=== PATIENT | male | born 1955 | race Caucasian/White ===

== ENCOUNTER 2017-07-26 13:07 | Emergency (ER) | payer MEDICARE ==
[~2017-07-26] VITALS: Wt 99.8 kg
[~2017-07-26 13:07] MED LIST: CIPROFLOXACIN500 MG PO; DILANTIN100 MG PO; FLOMAX0.4 MG PO; FUROSEMIDE40 MG PO; KLOR-CON20 MEQ PO; LASIX10 MG/ML PO; LASIX20 MG PO; LISINOPRIL5 MG PO; LOPRESSOR50 MG PO; METRONIDAZOLE250 MG PO; MIRALAX17 GM/PACK PO; Oscal,Oyster S500 MG PO; PROSCAR5 MG PO; SEPTRA DS 800 M1 TA1 PO; VICODIN 5/500 505 MG PO; XARE20MG PO; XARELTO10 MG PO
[2017-07-26] MEDS ORDERED: TRAMADOL HCL50 MG PO (13:24)
[2017-07-26] MEDS ORDERED: ACETAMINOPHEN325 M2 PO (13:25)
[2017-07-26] MEDS ORDERED: CIPROFLOXACIN500 M4 PO (13:25)
[2017-07-26] MEDS ORDERED: SEPTDS PO ×2 (13:26→15:30)
[2017-07-26 14:53] LABS: BILIRUBIN 2+ (NEGATIVE); BLOOD 3+ (NEGATIVE); COLOR RED (YELLOW); GLUCOSE TRACE (NEGATIVE); KETONE TRACE (NEGATIVE); NITRITE POSITIVE (NEGATIVE); PH 6.5 (5.0-9.0); SPECIFIC GRAVITY 1.015 (1.005-1.030)
[2017-07-26 14:54] LABS: CLARITY TURBID (CLEAR); LEUKO ESTERASE 2+ (NEGATIVE)
[2017-07-26 15:19] LABS: RBC TNTC rbc/hpf (0-2)
== END 2017-07-26 17:53 | disposition home or self-care (01) ==
LOC: ED 13:07
PROVIDERS: Student in an Organized Health Care Education/Training Program
DX: T83.018A Breakdown (mechanical) of other urinary catheter, initial encounter (principal); N39.0 Urinary tract infection, site not specified; Z98.890 Other specified postprocedural states; Y92.9 Unspecified place or not applicable

== ENCOUNTER 2018-04-16 17:29 | Emergency (ER) | payer MEDICARE, BC ==
[~2018-04-16] VITALS: Ht 187.9 cm; Wt 88.5 kg
[~2018-04-16 17:29] MED LIST changes: +ACETAMINOPHEN325 M2 PO; +CIPROFLOXACIN500 M4 PO; +SEPTDS PO; +TRAMADOL HCL50 MG PO
[2018-04-16] MEDS ORDERED: METOPROLOL SUCC50 M1 PO (18:16)
[2018-04-16] MEDS ORDERED: ASPIRIN81 M1 PO (18:17)
[2018-04-16] MEDS ORDERED: 'CLONIDINE0.1 MG PO (18:18)
[2018-04-16] MEDS ORDERED: IRON325 M1 PO (18:19)
[2018-04-16 19:19] LABS: BASO % 0.6 % (0.0-1.0); EOS # 0.3 10*3/uL (0.0-0.4); EOS % 4.4 % (1.0-4.0); HEMATOCRIT 39.6 % (42.0-52.0); HEMOGLOBIN 13.2 g/dl (14.0-18.0); LYMPH # 2.9 10*3/uL (1.3-4.4); LYMPH % 42.2 % (27.0-41.0); MEAN CELL VOLUME 88.8 fl (80.0-94.0); MEAN CORPUSCULAR HGB 29.6 pg (27.0-31.0); MEAN CORPUSCULAR HGB CONC 33.3 g/dl (33.0-37.0); MEAN PLATELET VOLUME 9.1 fl (9.6-12.3); MONO # 0.6 10*3/uL (0.1-1.0); MONO % 8.4 % (3.0-9.0); NEUT % 44.3 % (47.0-73.0); PLATELET COUNT AUTOMATED 255 10*3/uL (130-400); RED BLOOD COUNT 4.46 10*6/uL (4.50-5.90); RED CELL DISTRI WIDTH 16.4 % (0-14.5); WHITE BLOOD COUNT 6.9 10*3/uL (4.8-10.8)
[2018-04-16 19:34] LABS: ALBUMIN 3.6 gm/dl (3.1-4.5); ALKALINE PHOSPHATASE 103 U/L (45-117); BUN 13 mg/dl (7-24); CHLORIDE 95 mmol/L (98-107); CREATININE 0.59 mg/dL (0.70-1.30); POTASSIUM 3.8 mmol/L (3.5-5.1); SGOT/AST 8 IU/L (3-35); SGPT/ALT 14 U/L (12-78); SODIUM 130 mmol/L (136-145); TOTAL PROTEIN 7.8 gm/dL (6.4-8.2)
[2018-04-16 19:34] LABS: BILIRUBIN NEGATIVE (NEGATIVE); BLOOD 3+ (NEGATIVE); CLARITY CLOUDY (CLEAR); COLOR YELLOW (YELLOW); GLUCOSE NEGATIVE (NEGATIVE); KETONE NEGATIVE (NEGATIVE); LEUKO ESTERASE 3+ (NEGATIVE); NITRITE POSITIVE (NEGATIVE); PH 7.5 (5.0-9.0)
[2018-04-16 19:39] LABS: BACTERIA 4+; WBC TNTC wbc/hpf (0-5)
[2018-04-16 19:40] LABS: MUCOUS 1+
[2018-04-16] MEDS ORDERED: CIPRO500 MG PO (21:53)
== END 2018-04-16 22:03 | disposition home or self-care (01) ==
LOC: ED 17:29
PROVIDERS: Nurse Practitioner
DX: T83.098A Other mechanical complication of other urinary catheter, initial encounter (principal); N39.0 Urinary tract infection, site not specified; Z79.899 Other long term (current) drug therapy; Z79.82 Long term (current) use of aspirin

== ENCOUNTER 2018-07-09 13:51 | Inpatient (IN) | payer MEDICARE, BC ==
[~2018-07-09] VITALS: Ht 172.7 cm; Wt 95.9 kg
[2018-07-09] VITALS (8 sets, daily range): BP systolic 92–132; BP diastolic 61–84
--- NOTE | ~2018-07-09 | EKG ---
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
[~2018-07-09 13:51] MED LIST changes: +'CLONIDINE0.1 MG PO; +ASPIRIN81 M1 PO; +BACTRIM 400-801 EACH PO; +CIPRO500 MG PO; +IRON325 M1 PO; +METOPROLOL SUCC50 M1 PO
[2018-07-09 14:47] LABS: BASO % 0.6 % (0.0-1.0); EOS # 0.2 10*3/uL (0.0-0.4); EOS % 3.8 % (1.0-4.0); HEMATOCRIT 35.9 % (42.0-52.0); HEMOGLOBIN 11.7 g/dl (14.0-18.0); LYMPH # 0.8 10*3/uL (1.3-4.4); LYMPH % 17.3 % (27.0-41.0); MEAN CORPUSCULAR HGB 30.3 pg (27.0-31.0); MEAN CORPUSCULAR HGB CONC 32.6 g/dl (33.0-37.0); MONO # 0.3 10*3/uL (0.1-1.0); MONO % 6.9 % (3.0-9.0); NEUT # 3.4 10*3/uL (2.3-7.9); PLATELET COUNT AUTOMATED 207 10*3/uL (130-400); RED BLOOD COUNT 3.86 10*6/uL (4.50-5.90); RED CELL DISTRI WIDTH 15.4 % (0-14.5); WHITE BLOOD COUNT 4.8 10*3/uL (4.8-10.8)
[2018-07-09 15:01] LABS: INTERNATIONAL NORM RATIO 0.9 (2.0-3.5)
[2018-07-09 15:03] LABS: ALBUMIN 3.2 gm/dl (3.1-4.5); ALKALINE PHOSPHATASE 115 U/L (45-117); BUN 16 mg/dl (7-24); CHLORIDE 93 mmol/L (98-107); CREATININE 0.71 mg/dL (0.70-1.30); LIPASE 76 U/L (73-393); POTASSIUM 4.4 mmol/L (3.5-5.1); SGOT/AST 15 IU/L (3-35); SGPT/ALT 16 U/L (12-78); SODIUM 129 mmol/L (136-145); TOTAL PROTEIN 6.9 gm/dL (6.4-8.2)
[2018-07-09 15:08] LABS: TROPONIN I < 0.015 ng/ml (<0.045)
[2018-07-09 15:54] LABS: BILIRUBIN NEGATIVE (NEGATIVE); BLOOD 1+ (NEGATIVE); CLARITY CLOUDY (CLEAR); COLOR YELLOW (YELLOW); GLUCOSE NEGATIVE (NEGATIVE); KETONE NEGATIVE (NEGATIVE); LEUKO ESTERASE 3+ (NEGATIVE); NITRITE POSITIVE (NEGATIVE); SPECIFIC GRAVITY 1.025 (1.005-1.030)
[2018-07-09 16:13] LABS: BACTERIA 2+; WBC TNTC wbc/hpf (0-5)
[2018-07-09] MEDS ORDERED: CLONIDINE0.3 MG PO (18:05)
[2018-07-09] MEDS ORDERED: GOOD NEIGHBOR L10 MG PO (18:06)
[2018-07-10] VITALS: BP 135/83
[2018-07-10 07:32] LABS: BASO % 0.5 % (0.0-1.0); EOS # 0.2 10*3/uL (0.0-0.4); EOS % 3.1 % (1.0-4.0); HEMATOCRIT 35.1 % (42.0-52.0); HEMOGLOBIN 11.6 g/dl (14.0-18.0); LYMPH # 1.6 10*3/uL (1.3-4.4); LYMPH % 28.3 % (27.0-41.0); MEAN CELL VOLUME 91.9 fl (80.0-94.0); MEAN CORPUSCULAR HGB 30.4 pg (27.0-31.0); MEAN PLATELET VOLUME 9.1 fl (9.6-12.3); MONO # 0.4 10*3/uL (0.1-1.0); MONO % 7.6 % (3.0-9.0); NEUT # 3.3 10*3/uL (2.3-7.9); NEUT % 60.3 % (47.0-73.0); PLATELET COUNT AUTOMATED 206 10*3/uL (130-400); RED BLOOD COUNT 3.82 10*6/uL (4.50-5.90); RED CELL DISTRI WIDTH 15.3 % (0-14.5); WHITE BLOOD COUNT 5.5 10*3/uL (4.8-10.8)
[2018-07-10 07:38] LABS: ACT PARTIAL THROMBO TIME 28.7 SECONDS (20.8-31.5); INTERNATIONAL NORM RATIO 0.9 (2.0-3.5)
[2018-07-10 07:48] LABS: ALBUMIN 3.2 gm/dl (3.1-4.5); BUN 10 mg/dl (7-24); CHLORIDE 96 mmol/L (98-107); CHOLESTEROL 114 mg/dL (<200); PHOSPHOROUS 3.4 mg/dL (2.5-4.9); POTASSIUM 4.6 mmol/L (3.5-5.1); SGOT/AST 16 IU/L (3-35); SGPT/ALT 14 U/L (12-78); SODIUM 127 mmol/L (136-145); TOTAL PROTEIN 6.9 gm/dL (6.4-8.2); TRIGLYCERIDES 37 mg/dl (<150); VLDL CHOLESTEROL 7 mg/dL (6-40)
[2018-07-10 07:53] LABS: ALKALINE PHOSPHATASE 114 U/L (45-117); FREE T4 1.25 ng/dl (0.76-1.46); HDL CHOLESTEROL 60 mg/dl (40-60); LDL CHOLESTEROL 47 mg/dL (9-159)
[2018-07-10 08:00] VITALS: BP 120/80
[2018-07-10 08:44] LABS: VITAMIN D, 25-HYDROXY 16.1 ng/mL (30-100)
[2018-07-10 12:00] VITALS: BP 117/65
[2018-07-10 16:00] VITALS: BP 134/80
[2018-07-10 20:00] VITALS: BP 156/85
[2018-07-11] VITALS: BP 142/82
[2018-07-11 06:00] LABS: BASO % 0.4 % (0.0-1.0); EOS # 0.2 10*3/uL (0.0-0.4); EOS % 3.9 % (1.0-4.0); HEMATOCRIT 35.1 % (42.0-52.0); HEMOGLOBIN 11.3 g/dl (14.0-18.0); LYMPH # 1.4 10*3/uL (1.3-4.4); LYMPH % 29.8 % (27.0-41.0); MEAN CELL VOLUME 92.4 fl (80.0-94.0); MEAN CORPUSCULAR HGB 29.7 pg (27.0-31.0); MEAN CORPUSCULAR HGB CONC 32.2 g/dl (33.0-37.0); MEAN PLATELET VOLUME 9.2 fl (9.6-12.3); MONO # 0.6 10*3/uL (0.1-1.0); MONO % 11.4 % (3.0-9.0); NEUT # 2.6 10*3/uL (2.3-7.9); NEUT % 54.3 % (47.0-73.0); PLATELET COUNT AUTOMATED 209 10*3/uL (130-400); RED CELL DISTRI WIDTH 15.5 % (0-14.5); WHITE BLOOD COUNT 4.8 10*3/uL (4.8-10.8)
[2018-07-11 06:17] LABS: BUN 15 mg/dl (7-24); CHLORIDE 93 mmol/L (98-107); CREATININE 0.59 mg/dL (0.70-1.30); POTASSIUM 4.2 mmol/L (3.5-5.1); SODIUM 127 mmol/L (136-145)
[2018-07-11 08:00] VITALS: BP 144/74
[2018-07-11 12:00] VITALS: BP 149/91
[2018-07-11] MEDS ORDERED: CEFTRIAXONE1 GM IJ (15:26)
[2018-07-11 16:00] VITALS: BP 144/87
== END 2018-07-11 18:35 | disposition home health service (06) | DRG 603 ==
LOC: ED 13:51 → 4E 16:01 → EDHOLD 16:01 → 4E 16:19
PROVIDERS: Internal Medicine; Physician Assistant; Student in an Organized Health Care Education/Training Program
PROC: 05HY33Z Insertion of Infusion Device into Upper Vein, Percutaneous Approach (ICD-10-PCS; principal; 2018-07-11)
DX: L03.116 Cellulitis of left lower limb (principal); E87.1 Hypo-osmolality and hyponatremia; E44.1 Mild protein-calorie malnutrition; N30.01 Acute cystitis with hematuria; R55 Syncope and collapse; L03.115 Cellulitis of right lower limb; I87.2 Venous insufficiency (chronic) (peripheral); R00.1 Bradycardia, unspecified; D64.9 Anemia, unspecified; D72.810 Lymphocytopenia; B35.1 Tinea unguium; E55.9 Vitamin D deficiency, unspecified; I95.9 Hypotension, unspecified; E87.8 Other disorders of electrolyte and fluid balance, not elsewhere classified; I10 Essential (primary) hypertension; R26.2 Difficulty in walking, not elsewhere classified; Z93.59 Other cystostomy status; Z68.32 Body mass index [BMI] 32.0-32.9, adult; Z79.899 Other long term (current) drug therapy

== ENCOUNTER 2018-11-22 09:44 | Inpatient (IN) | payer MEDICARE, BC ==
[~2018-11-22] VITALS: Ht 182.8 cm; Wt 92.6 kg
--- NOTE | ~2018-11-22 | CON ---
[place], [place] REPORT OF CONSULTATION NAME: BROOKS CHADWICK UNIT #: [id number] ROOM: 419 DOCTOR: PARDEEP HERNANDEZ MD BIRTHDATE: [birth year] DOS: 11/23/2018 REASON FOR CONSULTATION: UTI. CHIEF COMPLAINT: Episode of syncope. HISTORY OF PRESENT ILLNESS: This is a 63-year-old male who is currently admitted after an episode of syncope at care home while he was sitting in his wheelchair. The patient is not the best historian and history is limited. Some of the history obtained is from medical records and after talking to his over the phone. According to the medical records, he was recently at [facility] and he underwent abdominal hernia surgery on 11/13/2018 and he has neurogenic bladder, for which he has chronic suprapubic catheter that is exchanged every month. Last was exchanged around 10/31/2018 at [facility] and this time, the patient denies having any fever, chills, no nausea or vomiting. His abdominal pain is partly related to his recent surgery, but no increased abdominal pain or concerns. On admission, his vitals have been stable. His labs reveal no leukocytosis. Renal function is at his baseline normal. His UA was obtained from the suprapubic catheter that shows pyuria too numerous to count and urine cultures are showing heavy gram-negative bacteria and GPC. In the past, he had a growth of Proteus mirabilis from 10/31/2018, also in 09/2018, previously had Morganella morganii. PAST MEDICAL HISTORY: Significant for abdominal hernia surgery as mentioned above, hypertension, suprapubic catheter. PAST SURGICAL HISTORY: Colostomy, suprapubic catheter. SOCIAL HISTORY: Nonsmoker, nonalcoholic, no illicit drug use. ALLERGIES: No known drug allergies. HOME MEDICATIONS: Reviewed. REVIEW OF SYSTEMS: A 12-point review of systems has been done. Pertinent negatives and positives included in HPI, rest are noncontributory. PHYSICAL EXAMINATION: CURRENT VITAL SIGNS: Include temperature 98.1, pulse rate 60, respiratory rate 18, oxygen saturation 100% on room air. HEENT: Atraumatic, normocephalic. PERRLA. EOMI. RESPIRATORY: Air entry is bilaterally equal. No wheezes or crackles. CARDIOVASCULAR: S1, S2 normal. No murmurs, rubs or gallops. ABDOMEN: Soft. Midline incision intact. Postop appropriate tenderness. Suprapubic catheter site. No purulence or drainage, minimal redness expected. No leakage. NEUROLOGIC: Grossly intact. LABS AND IMAGING: Reviewed and mentioned in HPI. [place], [place] REPORT OF CONSULTATION NAME: BROOKS CHADWICK UNIT #: [id number] ROOM: 419 DOCTOR: PARDEEP HERNANDEZ MD BIRTHDATE: [birth year] ASSESSMENT: 1. Transient encephalopathy, resolved, likely dehydration/metabolic issues. 2. Chronic Izaguirre/neurogenic bladder/questionable urinary tract infection versus blockage. PLAN: At this time, I did review his past records and he is due for his suprapubic catheter exchanged. I would recommend to place a new Izaguirre catheter, get the urinalysis from the new catheter and if it shows consistent pyuria, we will treat him for 7-10 days. Currently, the patient is on meropenem 1 g q. 8 hourly. Would deescalate based on the sensitivity and culture finalization. Fluid hydration. Thank you for your consult. Please call for any questions. Pardeep Hernandez MD CM:CONSTR:REPORT OF CONSULTATION 1025 11/23/18 1253 interface
--- NOTE | ~2018-11-22 | EKG ---
[place], [place] ELECTROCARDIOGRAM REPORT NAME: BROOKS CHADWICK UNIT #: [id number] ROOM: 419 DOCTOR: JEFFERY DRAFT REPORT BIRTHDATE: [birth year] [facility] Test Date: 2018-11-22 Test Time: 10:03:33 Pat Name: BROOKS CHADWICK Department: Room: 419 Gender: M Yard Driver: Mary Sifuentes : 1955 Requested By: ARRON COLMENARES Order Number: [id number] Reading MD: Eva Regalado MD Measurements Intervals [place] Rate: 54 P: 29 VT: 241 QRS: 73 QRSD: 107 T: 63 QT: 448 QTc: 425 Interpretive Statements Sinus rhythm Prolonged VT interval Probable lateral infarct, old Compared to ECG 07/09/2018 14:31:20 Myocardial infarct finding now present Electronically Signed On 11-24-2018 13:11:53 PDT by Eva Regalado MD CM:EKGRPT:ELECTROCARDIOGRAM REPORT 1003 1311 ARRON GIL DRAFT REPORT ARRON COLMENARES MD
[~2018-11-22 09:44] MED LIST changes: +CEFTRIAXONE1 GM IJ; +CEFUROXIME250 MG PO; +CLONIDINE HCL0.1 MG PO; +GOOD NEIGHBOR L10 MG PO; -METOPROLOL SUCC50 M1 PO; +METOPROLOL TART50 M1 PO
[2018-11-22 09:46] VITALS: BP 90/56
[2018-11-22 10:54] LABS: BILIRUBIN NEGATIVE (NEGATIVE); BLOOD 1+ (NEGATIVE); CLARITY CLOUDY (CLEAR); COLOR YELLOW (YELLOW); GLUCOSE NEGATIVE (NEGATIVE); KETONE NEGATIVE (NEGATIVE); LEUKO ESTERASE 2+ (NEGATIVE); NITRITE POSITIVE (NEGATIVE); PH 6.5 (5.0-9.0); UROBILINOGEN 0.2 E.U./dl (0.2-1.0)
[2018-11-22 10:55] LABS: BASO % 0.3 % (0.0-1.0); EOS # 0.3 10*3/uL (0.0-0.4); EOS % 4.1 % (1.0-4.0); HEMATOCRIT 35.5 % (42.0-52.0); HEMOGLOBIN 11.5 g/dl (14.0-18.0); LYMPH # 1.4 10*3/uL (1.3-4.4); LYMPH % 20.3 % (27.0-41.0); MEAN CELL VOLUME 93.4 fl (80.0-94.0); MEAN CORPUSCULAR HGB 30.3 pg (27.0-31.0); MEAN CORPUSCULAR HGB CONC 32.4 g/dl (33.0-37.0); MEAN PLATELET VOLUME 8.8 fl (9.6-12.3); MONO # 0.6 10*3/uL (0.1-1.0); NEUT # 4.7 10*3/uL (2.3-7.9); NEUT % 66.9 % (47.0-73.0); PLATELET COUNT AUTOMATED 250 10*3/uL (130-400); RED CELL DISTRI WIDTH 15.3 % (0-14.5)
[2018-11-22 11:09] LABS: ACT PARTIAL THROMBO TIME 27.8 SECONDS (20.8-31.5)
[2018-11-22 11:11] LABS: BACTERIA 4+; WBC TNTC wbc/hpf (0-5)
[2018-11-22 11:12] LABS: ALBUMIN 2.6 gm/dl (3.1-4.5); ALKALINE PHOSPHATASE 93 U/L (45-117); BUN 20 mg/dl (7-24); CHLORIDE 95 mmol/L (98-107); CREATININE 0.59 mg/dL (0.70-1.30); POTASSIUM 3.9 mmol/L (3.5-5.1); SGOT/AST 20 IU/L (3-35); SGPT/ALT 21 U/L (12-78); SODIUM 131 mmol/L (136-145); TOTAL PROTEIN 6.7 gm/dL (6.4-8.2)
[2018-11-22 11:15] LABS: TROPONIN I < 0.015 ng/ml (<0.045)
[2018-11-22 11:19] VITALS: BP 103/66
--- NOTE | 2018-11-22 11:47 | NUR ---
[facility] WILL SOON BE SENDING A BOOKING POLICE OFFICER TO [facility]ESS [facility]. NO CHANGE IN PT CONDITION OR COMPLAINT. HE CONTINUES TO SLEEP INTERMITTENTLY. MEAL TRAY ORDERED FOR LUNCH.
[2018-11-22 11:59] VITALS: BP 102/66
--- NOTE | 2018-11-22 12:37 | NUR ---
A 63, admitted to 4E, under the services of SONG Jason DO with a diagnosis of sycope. Chief complaint is pt states he fell over in wheelchair today at [facility]. Pt and mother in law present states that pt has done this for years, states he had seen a neurogist before and they told him it was some type of seizure disorder. States he just goes limp and is unresponsive when it happens. Pt denies falling out of chair today with this episode. Patient arrived via stretcher from ER. Monitor applied. Initial assessment completed. See assessment for past medical history, medications and allergies. Patient and/or family oriented to unit. [facility] visitation policy reviewed. JERICA HERNANDEZ
[2018-11-22 12:38] VITALS: BP 125/87
[2018-11-22] MEDS ORDERED: TYLENOL325 M2 PO (13:10)
[2018-11-22] MEDS ORDERED: DULCOLAX10 M1 R (13:14)
[2018-11-22] MEDS ORDERED: COUGH DM E30 MG/5 ML PO (13:14)
[2018-11-22] MEDS ORDERED: FEROSUL325 MG PO (13:15)
[2018-11-22] MEDS ORDERED: FLEET ENEMA 13133 ML R (13:16)
[2018-11-22] MEDS ORDERED: MILK OF MA400 MG/52 PO (13:17)
[2018-11-22] MEDS ORDERED: GLUCAGON EMERGEN1 M1 IJ (13:19)
[2018-11-22] MEDS ORDERED: GLUTOSE 1537.5 GM PO (13:21)
--- NOTE | 2018-11-22 13:40 | NUR ---
Orthostatics performed laying and sitting. 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
--- NOTE | 2018-11-22 13:40 | NUR ---
Spoke with Dr. Russ regarding wounds to buttocks bl and midline surgical incision. Notified that I had not received stages yet from ER staff.
--- NOTE | 2018-11-22 13:58 | NUR ---
Spoke with Thien Lara in ER regarding staging of wounds. States that the did not give him that information it should be documented somewhere. He asked Er physican and states that left buttocks is stage 3, rt buttocks DTI and midline is surgical.
--- NOTE | 2018-11-22 14:45 | NUR ---
Dr. Felder up to the floor. Notified of wounds and stages of wounds. States he will discuss orders with Crystal. I notified him that Crystal is currently out for the day.
[2018-11-22 16:00] VITALS: BP 142/77
--- NOTE | 2018-11-22 17:18 | NUR ---
ANSWERING SERVICE WAS NOTIFIED OF DR. NEVAEH LINDER. RESPONSE OF NOTIFICATION WAS INFORMATION THAT WAS REQUESTED WAS PROVIDED, THEY STATED THEY WOULD HAVE DR CALL US. JERICA HERNANDEZ
[2018-11-22 20:00] VITALS: BP 128/70
[2018-11-23] VITALS: BP 131/73
--- NOTE | 2018-11-23 04:05 | NUR ---
CHART CHECK COMPLETED.
[2018-11-23 06:28] LABS: BASO % 0.4 % (0.0-1.0); EOS # 0.3 10*3/uL (0.0-0.4); EOS % 6.1 % (1.0-4.0); HEMATOCRIT 36.5 % (42.0-52.0); HEMOGLOBIN 11.6 g/dl (14.0-18.0); LYMPH # 1.8 10*3/uL (1.3-4.4); LYMPH % 33.8 % (27.0-41.0); MEAN CELL VOLUME 94.8 fl (80.0-94.0); MEAN CORPUSCULAR HGB 30.1 pg (27.0-31.0); MEAN CORPUSCULAR HGB CONC 31.8 g/dl (33.0-37.0); MONO # 0.4 10*3/uL (0.1-1.0); MONO % 8.2 % (3.0-9.0); NEUT # 2.8 10*3/uL (2.3-7.9); NEUT % 51.3 % (47.0-73.0); PLATELET COUNT AUTOMATED 258 10*3/uL (130-400); RED BLOOD COUNT 3.85 10*6/uL (4.50-5.90); RED CELL DISTRI WIDTH 15.3 % (0-14.5); WHITE BLOOD COUNT 5.4 10*3/uL (4.8-10.8)
[2018-11-23 06:39] LABS: BUN 17 mg/dl (7-24); CHLORIDE 96 mmol/L (98-107); CREATININE 0.42 mg/dL (0.70-1.30); PHOSPHOROUS 3.1 mg/dL (2.5-4.9); POTASSIUM 4.3 mmol/L (3.5-5.1); SODIUM 132 mmol/L (136-145)
--- NOTE | 2018-11-23 10:30 | NUR ---
PHYSICAL THERAPY PT EVAL COMPLETED TODAY ON LEVEL 4: FULL EVALUATION TO FOLLOW; RECOMMEND PT WHILE HERE TO ADDRESS DECREASED STRENGTH, ENDURANCE AND BALANCE. PT EVAL IS MODERATE COMPLEXITY BASED ON CHART REVIEW, TEST RESULTS AND EVALUATION: [id number] D/C RECOMMENDATIONS ARE TO RETURN TO [facility] FOR CONTINUED SNF ON D.C. THANK YOU FOR REFERRAL JOSEPH CHO PT
--- NOTE | 2018-11-23 10:45 | NUR ---
Report given to Bety Smith supervisor doping while she was rounding. Notified that pt needs suprapubic cath changed then urine sent from new cath per ID. Bety states that nursing does not do that here and to notify the physican.
--- NOTE | 2018-11-23 11:00 | NUR ---
Spoke with Dr. Pal regarding need for suprapubic cath to be changed as ordered by Dr. Hernandez. Notified that nursing does not do that here.
[2018-11-23 12:00] VITALS: BP 142/86
--- NOTE | 2018-11-23 13:10 | NUR ---
Bety Smith nursing supervisor research shop states that we do not have any suprapubic caths available in hospital. States she spoke with Sanjiv and Corinne Núñez from surgery dept and attempted to locate them but the bin where she was directed was empty. States they recommended the malecot model instead. I notified Dr. Thakur of this and he states that if pt needs it exchanged he will have to go somewhere else since we do not have the appropriate supplies for pt.
--- NOTE | 2018-11-23 13:26 | NUR ---
I spoke with Dr. Felder and notified him that we do not have any suprapubic caths available and Dr. Thakur states if pt needs exchanged he said pt will need sent elsewhere. I notified Dr. Felder that per family pt had suprapubic cath placed 3 years ago and it was changed October 31 per family. Notified that operative report from [facility] is on chart. Then I spoke with Dr. Vivar and she states to call supervisor die casting regarding obtaining suprapubic cath and let her know when we can except this. I relayed this message to Bety Smith nursing supervisor die casting.
--- NOTE | 2018-11-23 15:00 | NUR ---
Bety spoke with Dr. Thakur regarding cath exchange. Bety had spoke with nursing staff at [facility] who stated that they use harris caths in place of suprapubics for their exchanges. Dr. Thakur states he will change then with steven.
[2018-11-23 16:00] VITALS: BP 132/86
--- NOTE | 2018-11-23 17:05 | NUR ---
IN TO SEE PATIENT REGARDING CONSULT. PREVIOUS SUPRA-PUBIC CATHETER REMOVED. NEW ASTUDILLO CATHETER INSERTED AT THIS TIME. PT TOLERATED WELL. DRY DRESSING APPLIED. WILL OBTAIN URINE SPECIMEN PER ORDER.
[2018-11-23 20:00] VITALS: BP 164/90
[2018-11-23 20:26] LABS: BILIRUBIN NEGATIVE (NEGATIVE); BLOOD 2+ (NEGATIVE); CLARITY CLEAR (CLEAR); COLOR YELLOW (YELLOW); GLUCOSE NEGATIVE (NEGATIVE); KETONE NEGATIVE (NEGATIVE); LEUKO ESTERASE 1+ (NEGATIVE); NITRITE NEGATIVE (NEGATIVE)
[2018-11-23 20:36] LABS: WBC TNTC wbc/hpf (0-5)
[2018-11-23 20:37] LABS: BACTERIA 2+; MUCOUS 1+
[2018-11-23 22:02] VITALS: BP 162/88
--- NOTE | 2018-11-23 22:06 | NUR ---
CALLED DR CANO TO LET HIM KNOW THE PATIENT BP WAS STILL ELEVATED. NEW ORDERS BEING PLACED.
[2018-11-23 23:22] VITALS: BP 156/82
[2018-11-24] VITALS: BP 156/82
--- NOTE | 2018-11-24 06:26 | NUR ---
MICRO RESULTS OF VRE OF THE URINE CALLED TO DR CANO AND MESSAGE LEFT WITH INFECTIOUS DISEASE ANSWERING SERVICE. NO NEW ORDERS RECEIVED AT THIS TIME.
[2018-11-24 08:00] VITALS: BP 120/70
[2018-11-24 08:23] LABS: BASO % 0.4 % (0.0-1.0); EOS # 0.3 10*3/uL (0.0-0.4); EOS % 5.9 % (1.0-4.0); HEMATOCRIT 36.3 % (42.0-52.0); HEMOGLOBIN 11.9 g/dl (14.0-18.0); LYMPH # 2.1 10*3/uL (1.3-4.4); LYMPH % 38.3 % (27.0-41.0); MEAN CELL VOLUME 93.1 fl (80.0-94.0); MEAN CORPUSCULAR HGB 30.5 pg (27.0-31.0); MEAN CORPUSCULAR HGB CONC 32.8 g/dl (33.0-37.0); MEAN PLATELET VOLUME 8.6 fl (9.6-12.3); MONO # 0.5 10*3/uL (0.1-1.0); MONO % 9.2 % (3.0-9.0); NEUT # 2.5 10*3/uL (2.3-7.9); PLATELET COUNT AUTOMATED 280 10*3/uL (130-400); RED CELL DISTRI WIDTH 15.3 % (0-14.5); WHITE BLOOD COUNT 5.4 10*3/uL (4.8-10.8)
[2018-11-24 08:46] LABS: ALBUMIN 2.8 gm/dl (3.1-4.5); ALKALINE PHOSPHATASE 101 U/L (45-117); BUN 10 mg/dl (7-24); CHLORIDE 92 mmol/L (98-107); CREATININE 0.36 mg/dL (0.70-1.30); POTASSIUM 4.3 mmol/L (3.5-5.1); SGOT/AST 19 IU/L (3-35); SGPT/ALT 18 U/L (12-78); SODIUM 127 mmol/L (136-145); TOTAL PROTEIN 7.1 gm/dL (6.4-8.2)
[2018-11-24 12:00] VITALS: BP 103/72
[2018-11-24 16:00] VITALS: BP 99/61
[2018-11-24 18:00] VITALS: BP 99/61
[2018-11-24 20:00] VITALS: BP 138/74
[2018-11-25] VITALS: BP 115/74
[2018-11-25 06:10] LABS: BASO % 0.3 % (0.0-1.0); EOS # 0.5 10*3/uL (0.0-0.4); EOS % 8.2 % (1.0-4.0); HEMATOCRIT 39.3 % (42.0-52.0); HEMOGLOBIN 12.8 g/dl (14.0-18.0); LYMPH # 2.1 10*3/uL (1.3-4.4); MEAN CELL VOLUME 92.9 fl (80.0-94.0); MEAN CORPUSCULAR HGB 30.3 pg (27.0-31.0); MEAN CORPUSCULAR HGB CONC 32.6 g/dl (33.0-37.0); MEAN PLATELET VOLUME 8.9 fl (9.6-12.3); MONO # 0.6 10*3/uL (0.1-1.0); MONO % 9.3 % (3.0-9.0); NEUT % 47.9 % (47.0-73.0); PLATELET COUNT AUTOMATED 307 10*3/uL (130-400); RED BLOOD COUNT 4.23 10*6/uL (4.50-5.90); RED CELL DISTRI WIDTH 15.2 % (0-14.5); WHITE BLOOD COUNT 6.2 10*3/uL (4.8-10.8)
[2018-11-25 06:29] LABS: BUN 11 mg/dl (7-24); CHLORIDE 89 mmol/L (98-107); CREATININE 0.45 mg/dL (0.70-1.30); PHOSPHOROUS 2.7 mg/dL (2.5-4.9); POTASSIUM 3.9 mmol/L (3.5-5.1); SODIUM 125 mmol/L (136-145)
--- NOTE | 2018-11-25 07:29 | NUR ---
NETTABROOKS Noonan [id number] Please refer to the physician's history and physical for past medical history, comorbid conditions, and allergies. Diagnosis: SYNCOPE AND COLLAPSE HYPOTENSION Ralph Score: 15,AT RISK WOUND DESCRIPTIONS: Wound Number: 1 Location of the wound: midline abdomen Type of wound: surgical Thickness: Partial Size: 16.5cm x 0.4cm x <0.1cm Tunneling: none Undermining: none Sinus Tract: none Presence of Exudate: none Amount: None Color: Brown Odor: None Periwound Skin Appearance: Normal Wound edges: approximated with 24 madie Pain (associated with wound): none at time of assessment How does patient state this happened? pt's nurse stated he had surgery on november 13 [place] Wound Number: 2 Right buttocks is red and blanchable at time of assessment. No open areas noted at time of assessment. No drainage noted at time of assessment. Wound Number: 3 Location of the wound: left buttocks Type of wound: stage 2 Thickness: Partial Size: 6.5cm x 7.5cm x 0.1cm Tunneling: none Undermining: none Sinus Tract: none Presence of Exudate: Serous Amount: Light Color: Red Odor: None Periwound Skin Appearance: Normal Wound edges: approximated Pain (associated with wound): none at time of assessment How does patient state this happened? pt unable to state how this happened Surface the patient is resting on: Isoflex SKIN PREVENTION RECOMMENDATION: 1. Pressure redistribution support surface as appropriate 2. Elevate heels 3. Remove boots/TEDS every shift and reapply 4. Head of bed 30 degrees as tolerated 5. Assess nutrition and hydration 6. Manage moisture 7. Avoid the use of containment devices while in bed 8. Use absorptive products on surfaces limit layers of linens on bed 9. Turn and reposition every 1-2 hours in bed and every 1 hour in chair as tolerated 10. Weight shifts every 15 minutes while up in chair 11. Offloading with pillows or device to keep heels elevated off bed 12. Monitor skin at least every shift 13. Inspect under medical devices twice a day WOUND TREATMENT RECOMMENDATIONS: Cleanse midline abdominal wound with nss and apply dsd daily and prn for soiling. Cleanse left buttocks with soap and water and apply calazime every shift and prn for soiling. Wheelchair cushion when oob. Heel raiser pro boots while in bed to bilateral heels. D/C stage 3 and 4 guidlines. D/C DTI guidelines.
[2018-11-25 08:00] VITALS: BP 122/78
--- NOTE | 2018-11-25 08:24 | NUR ---
CALLED DR. ANDREW IN REGARDS TO SODIUM AND CHLORIDE LEVELS (SEE LABS). NO NEW ORDERS AT THIS TIME.
--- NOTE | 2018-11-25 09:24 | NUR ---
Patient comes in from [facility] short term, he is ok to return when medically stable.
--- NOTE | 2018-11-25 10:51 | NUR ---
Dr. Lima notified of wound care recommendations.
--- NOTE | 2018-11-25 11:46 | NUR ---
PHYSICAL THERAPY Patient seen this am 1:1 for therapy visit and was sitting up in bedside chair upon therapist arrival. Patient presented with continuous O2-1L via NC and with severe L side lean. Patient repositioned in chair with increased trunk rigidity and was otherwise very pleasant. Patient performed seated B LE therex, all planes, x 20 reps each, requiring v/c to complete all ex in reaching full AROM. Patient transfers sit to stand, MAX A and completed SPT to bed, DISTRIBUTION DISPATCHER/MAX, demonstrating increased difficulty with B foot advance due to Poor weight shifting and Poor upright balance. Patient returned to supine in bed and remained with call light, tray table and bed alarm for safety. Will continue per POC as tolerated, total treatment time 15 minutes. Mark Casillas, HOME ORGANIZER
[2018-11-25 12:00] VITALS: BP 131/85
[2018-11-25 16:00] VITALS: BP 113/84
[2018-11-25 16:42] LABS: BILIRUBIN NEGATIVE (NEGATIVE); BLOOD TRACE-INTACT (NEGATIVE); CLARITY CLEAR (CLEAR); COLOR YELLOW (YELLOW); GLUCOSE NEGATIVE (NEGATIVE); KETONE NEGATIVE (NEGATIVE); LEUKO ESTERASE 1+ (NEGATIVE); NITRITE NEGATIVE (NEGATIVE); SPECIFIC GRAVITY 1.015 (1.005-1.030); UROBILINOGEN 0.2 E.U./dl (0.2-1.0)
[2018-11-25 16:51] LABS: URINE CREATININE RANDOM 64.4 mg/dL
[2018-11-25 17:02] LABS: BACTERIA 2+; MUCOUS 1+; WBC 31-40 wbc/hpf (0-5)
--- NOTE | 2018-11-25 19:43 | NUR ---
PATIENT RESTING COMFORTABLY. VERY ANXIOUS WHEN TRYING TO ASSESS SURGICAL SITE AND SUPRAPUBIC CATHETER SITE. BUT DID ALLOW. REMAINS PLEASANTLY CONFUSED. SENT URINE LABS (SEE ORDERS). APPLIED HEEL PROTECTORS AND SEAT CUSHION.
[2018-11-25 20:00] VITALS: BP 148/84
--- NOTE | 2018-11-25 20:00 | NUR ---
RESTING IN BED WITH HOB SLIGHTLY ELEVATED. PT. VOICES NO C/O AT THIS TIME. CALL LIGHT WITHIN REACH.
--- NOTE | 2018-11-25 22:30 | NUR ---
BEING BATHED BY PA. TOLERATING WELL. VOICES NO C/O AT THIS TIME. CALL LIGHT WITHIN REACH.
[2018-11-26] VITALS: BP 155/87
--- NOTE | 2018-11-26 06:00 | NUR ---
AROUSES EASILY WHEN IN ROOM. VOICES NO C/O AT THIS TIME. CALL LIGHT WITHIN REACH.
[2018-11-26 08:00] VITALS: BP 116/50
--- NOTE | 2018-11-26 08:19 | NUR ---
PHYSICAL THERAPY Nursing in with patient at this time. Will check later at later time. LATA RAZA ELECTRIC TRUCK OPERATOR
--- NOTE | 2018-11-26 09:00 | NUR ---
case management visits with patient, discussed with him a discharge plan and he stated he would be returning to [facility] to finish his skilled stay, case management will notify [facility] when patient is medically stable for discharge
[2018-11-26 09:01] LABS: BASO % 0.5 % (0.0-1.0); EOS # 0.4 10*3/uL (0.0-0.4); EOS % 6.9 % (1.0-4.0); HEMATOCRIT 35.1 % (42.0-52.0); HEMOGLOBIN 11.6 g/dl (14.0-18.0); LYMPH # 1.8 10*3/uL (1.3-4.4); LYMPH % 33.3 % (27.0-41.0); MEAN CELL VOLUME 91.4 fl (80.0-94.0); MEAN CORPUSCULAR HGB 30.2 pg (27.0-31.0); MEAN PLATELET VOLUME 8.8 fl (9.6-12.3); MONO # 0.5 10*3/uL (0.1-1.0); MONO % 8.6 % (3.0-9.0); NEUT # 2.8 10*3/uL (2.3-7.9); NEUT % 50.5 % (47.0-73.0); PLATELET COUNT AUTOMATED 303 10*3/uL (130-400); RED BLOOD COUNT 3.84 10*6/uL (4.50-5.90); RED CELL DISTRI WIDTH 15.3 % (0-14.5); WHITE BLOOD COUNT 5.5 10*3/uL (4.8-10.8)
[2018-11-26 09:12] LABS: ALBUMIN 2.9 gm/dl (3.1-4.5); ALKALINE PHOSPHATASE 103 U/L (45-117); BUN 9 mg/dl (7-24); CHLORIDE 94 mmol/L (98-107); CREATININE 0.45 mg/dL (0.70-1.30); POTASSIUM 3.8 mmol/L (3.5-5.1); SGOT/AST 12 IU/L (3-35); SGPT/ALT 17 U/L (12-78); SODIUM 130 mmol/L (136-145); TOTAL PROTEIN 6.8 gm/dL (6.4-8.2)
[2018-11-26 12:00] VITALS: BP 128/75
[2018-11-26] MEDS ORDERED: ZOSYN 3.373.375 GM/5 IV (13:38)
--- NOTE | 2018-11-26 14:11 | NUR ---
case management received a message that patient would be transferred back to [facility], contacted Clarissa from [facility] and notified her that patient would be coming back around 3pm today, also faxed patient's information to her. contacted [facility] to transport at 3pm, patient's information faxed to [facility]. informated patient's nurse time of transfer. visited with patient and informed him he would be returning to [facility] at 3pm, also contacted his , Kat and notified her
--- NOTE | 2018-11-26 14:18 | NUR ---
PATIENT BEING DISCHARGED.
--- NOTE | 2018-11-26 15:17 | NUR ---
NURSE TO NURSE REPORT GIVEN TO HUY AT [facility].
--- NOTE | 2018-11-26 15:36 | NUR ---
PHYSICAL THERAPY CO-SIGN I approve of the Phyical Therapy notes written above. PEDRO EID PT
--- NOTE | 2018-11-26 16:00 | NUR ---
Discharge instructions reviewed with patient/family. Patient receptive and verbalizes understanding. Follow-up care arranged. Written instructions given to patient/family. ZOHREH JOHNSON
== END 2018-11-26 16:00 | disposition other institution (70) | DRG 70 ==
LOC: ED 09:44 → EDHOLD 11:51 → 4E 11:51
PROVIDERS: Emergency Medicine; Internal Medicine; Internal Medicine Nephrology; Student in an Organized Health Care Education/Training Program; ADMIT Emergency Medicine
PROC: 0T2BX0Z Change Drainage Device in Bladder, External Approach (ICD-10-PCS; principal; 2018-11-24)
PROC: 05HY33Z Insertion of Infusion Device into Upper Vein, Percutaneous Approach (ICD-10-PCS; 2018-11-25)
DX: G93.41 Metabolic encephalopathy (principal); L89.323 Pressure ulcer of left buttock, stage 3; E43 Unspecified severe protein-calorie malnutrition; N39.0 Urinary tract infection, site not specified; E87.1 Hypo-osmolality and hyponatremia; G91.9 Hydrocephalus, unspecified; I95.9 Hypotension, unspecified; R55 Syncope and collapse; L89.310 Pressure ulcer of right buttock, unstageable; B96.5 Pseudomonas (aeruginosa) (mallei) (pseudomallei) as the cause of diseases classified elsewhere; N31.9 Neuromuscular dysfunction of bladder, unspecified; D64.9 Anemia, unspecified; R00.1 Bradycardia, unspecified; R26.2 Difficulty in walking, not elsewhere classified; I10 Essential (primary) hypertension; E55.9 Vitamin D deficiency, unspecified; E61.1 Iron deficiency; Z87.440 Personal history of urinary (tract) infections; Z80.1 Family history of malignant neoplasm of trachea, bronchus and lung; Z79.899 Other long term (current) drug therapy

== ENCOUNTER 2019-04-05 11:11 | Inpatient (IN) | payer MEDICARE, BC ==
[~2019-04-05] VITALS: Ht 182.8 cm; Wt 81.9 kg
[~2019-04-05 11:11] MED LIST changes: +COUGH DM E30 MG/5 ML PO; +DULCOLAX10 M1 R; +FEROSUL325 MG PO; +FLEET ENEMA 13133 ML R; +GLUCAGON EMERGEN1 M1 IJ; +GLUTOSE 1537.5 GM PO; +MILK OF MA400 MG/52 PO; +TYLENOL325 M2 PO; +ZOSYN 3.373.375 GM/5 IV
[2019-04-05 11:18] VITALS: BP 154/97
[2019-04-05 11:49] LABS: BILIRUBIN NEGATIVE (NEGATIVE); BLOOD 1+ (NEGATIVE); CLARITY CLOUDY (CLEAR); COLOR YELLOW (YELLOW); GLUCOSE NEGATIVE (NEGATIVE); KETONE NEGATIVE (NEGATIVE); LEUKO ESTERASE 3+ (NEGATIVE); NITRITE NEGATIVE (NEGATIVE); PH 8.5 (5.0-9.0)
[2019-04-05 11:49] LABS: BASO # 0.1 10*3/uL (0.0-0.1); BASO % 0.7 % (0.0-1.0); EOS # 0.7 10*3/uL (0.0-0.4); EOS % 8.7 % (1.0-4.0); HEMATOCRIT 41.5 % (42.0-52.0); HEMOGLOBIN 13.7 g/dl (14.0-18.0); LYMPH # 2.3 10*3/uL (1.3-4.4); LYMPH % 29.8 % (27.0-41.0); MEAN CELL VOLUME 90.8 fl (80.0-94.0); MEAN PLATELET VOLUME 8.4 fl (9.6-12.3); MONO # 0.5 10*3/uL (0.1-1.0); MONO % 6.6 % (3.0-9.0); NEUT # 4.1 10*3/uL (2.3-7.9); NEUT % 53.9 % (47.0-73.0); PLATELET COUNT AUTOMATED 315 10*3/uL (130-400); RED BLOOD COUNT 4.57 10*6/uL (4.50-5.90); RED CELL DISTRI WIDTH 14.3 % (0-14.5); WHITE BLOOD COUNT 7.6 10*3/uL (4.8-10.8)
[2019-04-05 12:05] LABS: ALBUMIN 2.9 gm/dl (3.1-4.5); ALKALINE PHOSPHATASE 86 U/L (45-117); BUN 6 mg/dl (7-24); CHLORIDE 90 mmol/L (98-107); CREATININE 0.42 mg/dL (0.70-1.30); POTASSIUM 4.2 mmol/L (3.5-5.1); SGOT/AST 12 IU/L (3-35); SGPT/ALT 11 U/L (12-78); SODIUM 123 mmol/L (136-145); TOTAL PROTEIN 7.3 gm/dL (6.4-8.2)
[2019-04-05 12:06] LABS: BACTERIA 4+; WBC TNTC wbc/hpf (0-5)
[2019-04-05 13:25] VITALS: BP 124/86
--- NOTE | 2019-04-05 13:27 | NUR ---
THE IS NOTED LEAKAGE AROUN THE SUPRA PUBIC CATHER. THE SURROUND AREA HAS ERYTHEMA. THE BILATERAL BUTTOCK ARE NOTED TO HAVE ERYTHEMA, DRY SKIN AND THE SKIN IS BEGINNING TO OPEN IN SEVERAL AREAS. THE PT REFUSED TO LAY ON EITHER SIDE. HE WILL ONLY LAY ON HIS BACK.
--- NOTE | 2019-04-05 13:45 | NUR ---
WOUND MEASUREMENTS COMPLETED PER PROTOCOL.DR SAUER NOTIFIED WHILE HE ROPUNDED AND SEEN PT AT THIS TIME.
--- NOTE | 2019-04-05 14:24 | NUR ---
MEDS RECONCILED WITH AT BEDSIDE. STATES THAT "I TOOK HIM OFF ALL THOSE MEDS".
[2019-04-05 16:00] VITALS: BP 131/88
[2019-04-05 20:00] VITALS: BP 107/75
--- NOTE | 2019-04-05 20:20 | NUR ---
ASSUMED CARE OF PATIENT. PATIENT LYING IN BED, C/O SORENESS GENERALIZED. DENIES ANY OTHER DISCOMFORTS. CALL LIGHT PLACED IN REACH.
--- NOTE | 2019-04-05 21:18 | NUR ---
PATIENT RECEIVED TYLENOL FOR GENERALIZED PAIN RATED 6/10.
--- NOTE | 2019-04-05 23:00 | NUR ---
TOOK OVER CARE OF PT AT THIS TIME. PT LYING IN BED, EYES OPEN, ALERT ORIENTED AND PLEASANT MOOD. NO COMPLAINTS VOICED AT THIS TIME. RESPIRAITONS EASY AND UNLABORED. PT DENIES PAIN AND SHORTNESS OF BREATH. ASSESSMENT COMPLETE. ALL NEEDS CURRENTLY MET. ALL SAFETY MEASURES IN PLACE. CALL LIGHT IN REACH.
[2019-04-06] VITALS: BP 129/86
--- NOTE | 2019-04-06 01:14 | NUR ---
PT GIVEN RESTORIL AT THIS TIME DUE RESTLESSNESS. WILL MONTOR FOR EFFECTIVENESS. CALL LIGHT IN REACH.
--- NOTE | 2019-04-06 02:14 | NUR ---
RESTORIL EFFECTIVE PER PT.
[2019-04-06 07:13] LABS: BASO # 0.1 10*3/uL (0.0-0.1); BASO % 0.8 % (0.0-1.0); EOS # 0.8 10*3/uL (0.0-0.4); EOS % 12.2 % (1.0-4.0); HEMATOCRIT 40.5 % (42.0-52.0); HEMOGLOBIN 13.4 g/dl (14.0-18.0); LYMPH # 2.1 10*3/uL (1.3-4.4); LYMPH % 32.9 % (27.0-41.0); MEAN CELL VOLUME 90.6 fl (80.0-94.0); MEAN CORPUSCULAR HGB CONC 33.1 g/dl (33.0-37.0); MEAN PLATELET VOLUME 8.8 fl (9.6-12.3); MONO # 0.6 10*3/uL (0.1-1.0); MONO % 8.8 % (3.0-9.0); NEUT # 2.9 10*3/uL (2.3-7.9); PLATELET COUNT AUTOMATED 305 10*3/uL (130-400); RED BLOOD COUNT 4.47 10*6/uL (4.50-5.90); RED CELL DISTRI WIDTH 14.5 % (0-14.5); WHITE BLOOD COUNT 6.5 10*3/uL (4.8-10.8)
[2019-04-06 07:14] LABS: BUN 10 mg/dl (7-24); CHLORIDE 92 mmol/L (98-107); CHOLESTEROL 142 mg/dL (<200); CREATININE 0.37 mg/dL (0.70-1.30); FREE T4 1.39 ng/dl (0.76-1.46); PHOSPHOROUS 3.3 mg/dL (2.5-4.9); POTASSIUM 3.5 mmol/L (3.5-5.1); SODIUM 126 mmol/L (136-145); TRIGLYCERIDES 107 mg/dl (<150); VLDL CHOLESTEROL 21 mg/dL (6-40)
[2019-04-06 07:22] LABS: HDL CHOLESTEROL 31 mg/dl (40-60); LDL CHOLESTEROL 90 mg/dL (9-159)
[2019-04-06 07:36] LABS: ACT PARTIAL THROMBO TIME 32.5 SECONDS (20.0-32.1)
--- NOTE | 2019-04-06 07:48 | NUR ---
24 HR chart check completed.
[2019-04-06 08:00] VITALS: BP 106/72
[2019-04-06 08:36] LABS: VITAMIN D, 25-HYDROXY 9.5 ng/mL (30-100)
[2019-04-06 12:00] VITALS: BP 78/50; BP 98/62
[2019-04-06 16:00] VITALS: BP 110/76
[2019-04-06 20:00] VITALS: BP 114/80
--- NOTE | 2019-04-06 23:00 | NUR ---
PATIENT CLEANED UP AND REPOSITIONED FOR COMFORT. NO DISTRESS NOTED. CALL LIGHT WITHIN REACH.
--- NOTE | 2019-04-06 23:53 | NUR ---
24 HR chart check completed.
[2019-04-07] VITALS: BP 125/87
--- NOTE | 2019-04-07 06:34 | NUR ---
DR. ANDREW NOTIFIED THAT URINARY OUTPUT FOR WAS ONLY 50 CC. NO NEW ORDERS.
--- NOTE | 2019-04-07 07:49 | NUR ---
BROOKS CHADWICK Saran [id number] Please refer to the physician's history and physical for past medical history, comorbid conditions, and allergies. Diagnosis: HYPONATREMIA Ralph Score: 12,HIGH RISK WOUND DESCRIPTIONS: Wound #1 mid ABD supra pubic site pink intact skin. Wound Number: 2 Location of the wound: right buttock Type of wound: stage 2 Thickness: Partial Size: 3cm x 1.5cm x 0.1cm Tunneling: none Undermining: none Sinus Tract: none Presence of Exudate: Serous Amount: Light Color: Red Odor: None Periwound Skin Appearance: Dry Wound edges: approximated Pain (associated with wound): denied at time of assessment How does patient state this happened? patient unsure how this happened. Wound #3 left buttock skin pink, blanchable red and intact. Surface the patient is resting on: Isoflex SKIN PREVENTION RECOMMENDATION: 1. Pressure redistribution support surface as appropriate 2. Elevate heels 3. Remove boots/TEDS every shift and reapply 4. Head of bed 30 degrees as tolerated 5. Assess nutrition and hydration 6. Manage moisture 7. Avoid the use of containment devices while in bed 8. Use absorptive products on surfaces limit layers of linens on bed 9. Turn and reposition every 1-2 hours in bed and every 1 hour in chair as tolerated 10. Weight shifts every 15 minutes while up in chair 11. Offloading with pillows or device to keep heels elevated off bed 12. Monitor skin at least every shift 13. Inspect under medical devices twice a day WOUND TREATMENT RECOMMENDATIONS: Dressing change: Cleanse left and right buttocks with soap and water pat dry and apply zinc oxide and vitamin A and D ointment BID and as needed for soiling. Dressing change to Mid ABD supra pubic site: Cleanse with soap and water pat dry and apply drain sponge daily and as needed.
[2019-04-07 08:00] VITALS: BP 128/92
[2019-04-07 08:32] LABS: BUN 12 mg/dl (7-24); CHLORIDE 95 mmol/L (98-107); CREATININE 0.35 mg/dL (0.70-1.30); POTASSIUM 3.7 mmol/L (3.5-5.1); SODIUM 127 mmol/L (136-145)
[2019-04-07 08:50] VITALS: BP 122/84
--- NOTE | 2019-04-07 09:00 | NUR ---
case management visits with patient, he states he lives at home with is , he also stated he was at [facility] in the past, patient was unaware of what he would need when discharged, asked case management/social welfare administrator to contact his to see what he would need for discharge
--- NOTE | 2019-04-07 09:38 | NUR ---
Spoke with Dr. Vivar she stated to give them (Wound care recommendations) to the resident.
--- NOTE | 2019-04-07 11:51 | NUR ---
PT GIVEN NORCO AT THIS TIME FOR C/O GENERALIZED PAIN, RATES PAIN AN "7" ON 1-10 SCALE. WILL MONITOR FOR EFFECTIVENESS. CALL LIGHT IN REACH.
[2019-04-07 11:52] VITALS: BP 110/72
--- NOTE | 2019-04-07 12:51 | NUR ---
NORCO EFFECTIVE PER PT. NO S/S OF PAIN AT THIS TIME.
--- NOTE | 2019-04-07 14:30 | NUR ---
Occupational Therapy evaluation completed on 4 with full eval to follow. Precautions include fall risk, poor static sit balance, impaired/poor functional use LUE,impaired cognition and poor/inaccurate history,high complexity level 22294 via chart review, testing and evaluation. Recommend OT per POC for sit balance,bed mobility,upper extremity range of motion/ functional use and upper body self care trial and SNF v.s. home with 24 hr supervision/assist and kelly lift. Thank you. Maddy Merritt OTR/l
--- NOTE | 2019-04-07 14:30 | NUR ---
PHYSICAL THERAPY Physical therapy evaluation complete, 4E. Full evaluation/details to follow. High complexity PT evaluation (00284) per chart review and evaluation. PT to progress LE PROM, bed mobility, and transfers per POC. Recommend 24 supervision and assist at discharge. Thank you. Corinne Walker,PT,DPT
--- NOTE | 2019-04-07 15:38 | NUR ---
case management called patient's regarding discharge plans, left a message on answering machine for to contact case management
[2019-04-07 16:00] VITALS: BP 101/65
--- NOTE | 2019-04-07 18:25 | NUR ---
CONSULT CALLED TO ANSWERING SERVICE FOR DR BANUELOS. SPOKE WITH RADHA, STATING SHE WILL GIVE THE DOCTORS THE INFORMATION.
--- NOTE | 2019-04-07 18:37 | NUR ---
CONSULT CALLED TO ANSWERING SERVICE FOR DR HERRING PER PHYSICIAN ORDERS. ANSWERING SERVICE STATES THAT THEY WILL PAGE THE PHYSICIAN.
--- NOTE | 2019-04-07 18:56 | NUR ---
SPOKE WITH DR BANUELOS REGARDING CONSULT ORDERS, NEW ORDERS RECEIVED: OBTAIN URINALYSIS, OBTAIN URINE LYTES, OBTAIN URINE OSMOLALITY, GIVE 1 LITER OF 0.9NS AT 70CC/HOUR X 1 BAG, CHANGE PT FLUID RESTRICTION FROM 1500 CC TO 1200 CC.
--- NOTE | 2019-04-07 19:00 | NUR ---
NOTIFIED PATIENT ATTENDANT OF CHANGE IN FLUID RESTRICTION.
[2019-04-07 20:00] VITALS: BP 110/74
--- NOTE | 2019-04-07 21:00 | NUR ---
Patient resting quietly with no c/o discomfort. Respirations easy and regular. Vital signs stable. No overt distress. Patient repositioned for comfort. IV fluids started per order. JAZMÍN LOPEZ
[2019-04-08] VITALS: BP 122/83
[2019-04-08 02:08] LABS: BILIRUBIN 1+ (NEGATIVE); BLOOD TRACE-INTACT (NEGATIVE); CLARITY TURBID (CLEAR); COLOR YELLOW (YELLOW); GLUCOSE NEGATIVE (NEGATIVE); KETONE NEGATIVE (NEGATIVE); LEUKO ESTERASE 3+ (NEGATIVE); NITRITE POSITIVE (NEGATIVE); PH >= 9.0 (5.0-9.0); SPECIFIC GRAVITY <= 1.005 (1.005-1.030)
--- NOTE | 2019-04-08 02:14 | NUR ---
PATIENT SLEEPING IN BED. IV FLUIDS INFUSING ORDERED. CALL LIGHT WITHIN REACH.
[2019-04-08 02:16] LABS: BACTERIA 2+; TRIP PHOS CRYSTALS 4+
--- NOTE | 2019-04-08 03:12 | NUR ---
24 HR chart check completed.
[2019-04-08 06:06] LABS: BUN 10 mg/dl (7-24); CHLORIDE 94 mmol/L (98-107); CREATININE 0.36 mg/dL (0.70-1.30); POTASSIUM 3.7 mmol/L (3.5-5.1); SODIUM 126 mmol/L (136-145)
--- NOTE | 2019-04-08 06:17 | NUR ---
PATIENT MEDICATED WITH PRN NORCO PER ORDER FOR C/O 01/29 STOMACH PAIN. WILL MONITOR
--- NOTE | 2019-04-08 06:37 | NUR ---
NOTIFIED RESIDENT ETHANOL OPERATOR OF URINE OUTPUT OF 100CC [id number]. NO NEW ORDERS.
[2019-04-08 08:00] VITALS: BP 122/96
--- NOTE | 2019-04-08 08:17 | NUR ---
call last evening (04/07/19) and spoke with Angelina Aguilar CM. She stated she would like patient to return home upon discharge. He has a BSC, WC and a walker with [facility]. Physicians notes stated patient wants to go to snf at [facility]. Attempted to contact Kat again, unable to contact, left voicemail and asked for return call. Waiting for return call.
--- NOTE | 2019-04-08 08:54 | NUR ---
Patients Kat called back and stated "I want him to come home with [facility]". She stated he has been to snf in the past and does not want him to return. Will need home health order prior to discharge.
--- NOTE | 2019-04-08 09:26 | NUR ---
PHYSICAL THERAPY PT SUPINE IN BED UPON ARRIVAL. PT IDENTIFIED BY NAME AND . PT AGREED TO ALL PHYSICAL THERAPY TREATMENT THIS A.M. PT C/O 8/10 PAIN IN R HIP. WAREHOUSE ORDER SELECTOR MANUALY STRETCHED BILATERAL HAMSTRINGS, CALF, HEEL CORD AND GROIN MUSCLES FOR 5 X 20SEC EACH. PT C/O INCREASED R HIP PAIN WITH REPOSITIONING AND MOVEMENT OF RLE. PT PERFORMED 5 HAND HELD CRUCHES WITH VC'S FOR PROPER TECHNIQUE. PT REQUIRED MAXa X2 LIFT WITH BED MOBILITY WITH MOVING PT TO HEAD OF BED. PT SUPINE IN BED WITH BED ALARM ON AND CALL LIGHT IN HAND AT END OF SESSION. PT SEEN 1:1 FOR 14MINS. QUENTIN HARDY PTA
--- NOTE | 2019-04-08 10:27 | NUR ---
Dr. Lima given wound care recommendations he stated he will give them to Dr. Rhoades.
[2019-04-08 12:00] VITALS: BP 119/85
--- NOTE | 2019-04-08 15:08 | NUR ---
[facility] CALLED PER DR TURPIN'S REQUEST TO FIND OUT WHEN SUPRA PUBIC CATH WAS LAST CHANGED. PER COMPANY 03/24/19 AND DUE AGAIN ON 04/21/19. DR TURPIN NOTIFIED.
[2019-04-08 16:00] VITALS: BP 98/70
--- NOTE | 2019-04-08 19:45 | NUR ---
Patient resting quietly. Repositioned for comfort. Vital signs stable. No distress noted. JOHNJAZMÍN
[2019-04-08 20:00] VITALS: BP 102/64
--- NOTE | 2019-04-08 20:34 | NUR ---
PATIENT MEDICATED WITH NORCO FOR C/O GENERALIZED / PAIN. ALSO, PATIENT MEDICATED WITH PRN RESTORIL TO HELP SLEEP PER REQUEST. WILL MONITOR.
--- NOTE | 2019-04-08 20:49 | NUR ---
24 HR chart check completed.
--- NOTE | 2019-04-08 21:06 | NUR ---
PATIENT STATED THE PRN NORCO HELPED WITH HIS PAIN BUT PATIENT IS STILL AWAKE AT THIS TIME.
[2019-04-09] VITALS: BP 110/67
--- NOTE | 2019-04-09 03:53 | NUR ---
Upon discharge recommend patient to follow up for wound care in outpatient setting continue current wound care orders at discharging facility.
--- NOTE | 2019-04-09 06:12 | NUR ---
PATIENT RESTING IN BED. TOOK AM MEDICATIONS WITHOUT DIFFICULTY. NO ACUTE DISTRESS NOTED.
[2019-04-09 07:18] LABS: BASO # 0.1 10*3/uL (0.0-0.1); BASO % 0.8 % (0.0-1.0); EOS # 0.7 10*3/uL (0.0-0.4); EOS % 11.2 % (1.0-4.0); HEMOGLOBIN 12.1 g/dl (14.0-18.0); LYMPH # 2.4 10*3/uL (1.3-4.4); LYMPH % 36.5 % (27.0-41.0); MEAN CORPUSCULAR HGB 30.1 pg (27.0-31.0); MEAN CORPUSCULAR HGB CONC 32.7 g/dl (33.0-37.0); MONO # 0.7 10*3/uL (0.1-1.0); MONO % 10.6 % (3.0-9.0); NEUT # 2.6 10*3/uL (2.3-7.9); NEUT % 40.4 % (47.0-73.0); PLATELET COUNT AUTOMATED 256 10*3/uL (130-400); RED BLOOD COUNT 4.02 10*6/uL (4.50-5.90); RED CELL DISTRI WIDTH 14.6 % (0-14.5); WHITE BLOOD COUNT 6.5 10*3/uL (4.8-10.8)
[2019-04-09 07:42] LABS: BUN 11 mg/dl (7-24); CHLORIDE 97 mmol/L (98-107); CREATININE 0.36 mg/dL (0.70-1.30); SODIUM 130 mmol/L (136-145)
[2019-04-09 08:00] VITALS: BP 133/83
--- NOTE | 2019-04-09 09:00 | NUR ---
case management visits with patient, he will return home with when medically stable. case management will notify [facility] health to continue their services, no other needs at this time
--- NOTE | 2019-04-09 09:40 | NUR ---
Patient has stated he would like to go to snf at [facility], however after discussing with patients , patient is out of snf days and they cannot afford to pay the copay. There is no medicaid at this time. Patient is to be discharged to home to resume [facility].
--- NOTE | 2019-04-09 09:45 | NUR ---
PHYSICAL THERAPY Patient seen this am 1:1 for therapy visit and was supine in bed upon therapist arrival. Patient presented on side lying on L side with severe B knee flexion contracture. Patient becomes very "guarded" upon light palpation of LE's, pulling legs up into position. Patient instructed on relaxation breathing technique while therapist performed B LE contract / relax PNF ex to promote increased B knee extension. Patient also reported 5/10 B LE pain / stiffness prior to treatment and was able to perform AAROM B hip abduction, SAQ. Patient remained supine in bed with increased B knee extension and reduced c/o pain 3/10. Patient bed side rails elevated and bed alarm also activated for safety with call light within reach. Will continue per POC as toelerated, total treatment time 16 minutes. Mark Casillas, FILAMENT COIL WINDER
[2019-04-09 11:41] VITALS: BP 95/60
[2019-04-09] MEDS ORDERED: LEVOFLOXACIN500 MG PO (13:40)
--- NOTE | 2019-04-09 14:49 | NUR ---
case mangmerari received a message that patient is being discharged to home today, patient's would like him transported by [facility] ambulance, contacted [facility] ambulance and he will be picked up at the hospital at 3:30, nursing staff and patient's Kat notified
--- NOTE | 2019-04-09 14:58 | NUR ---
case management notified [facility] that patient is being discharged to home, patient's discharge information faxed
--- NOTE | 2019-04-09 16:02 | NUR ---
Discharge instructions reviewed with patient/family. Patient receptive and verbalizes understanding. Follow-up care arranged. Written instructions given to patient/family. RACHEAL BROWN
== END 2019-04-09 16:02 | disposition home health service (06) | DRG 698 ==
LOC: ED 11:11 → EDHOLD 12:14 → 4E 12:14
PROVIDERS: Family Medicine; Internal Medicine; Internal Medicine Nephrology; ADMIT Emergency Medicine
DX: T83.518A Infection and inflammatory reaction due to other urinary catheter, initial encounter (principal); R53.2 Functional quadriplegia; E87.1 Hypo-osmolality and hyponatremia; N39.0 Urinary tract infection, site not specified; E44.0 Moderate protein-calorie malnutrition; G91.9 Hydrocephalus, unspecified; B96.4 Proteus (mirabilis) (morganii) as the cause of diseases classified elsewhere; B96.20 Unspecified Escherichia coli [E. coli] as the cause of diseases classified elsewhere; R26.2 Difficulty in walking, not elsewhere classified; D64.9 Anemia, unspecified; R00.1 Bradycardia, unspecified; I10 Essential (primary) hypertension; Y84.6 Urinary catheterization as the cause of abnormal reaction of the patient, or of later complication, without mention of misadventure at the time of the procedure; Y92.89 Other specified places as the place of occurrence of the external cause; Z80.1 Family history of malignant neoplasm of trachea, bronchus and lung; Z87.440 Personal history of urinary (tract) infections; Z79.899 Other long term (current) drug therapy; Z68.28 Body mass index [BMI] 28.0-28.9, adult

== ENCOUNTER 2019-04-10 18:24 | Inpatient (IN) | payer MEDICARE, BC ==
[2019-04-10] VITALS (8 sets, daily range): BP systolic 93–115; BP diastolic 65–76
[~2019-04-10] VITALS: Ht 172.7 cm; Wt 84.4 kg
[~2019-04-10 18:24] MED LIST changes: +LEVOFLOXACIN500 MG PO
--- NOTE | 2019-04-10 19:04 | NUR ---
REPORT FROM MINGO/SALO JOHANSEN AT THIS TIME
--- NOTE | 2019-04-10 19:44 | NUR ---
ASSISTED DR PARKER WITH REPLACING SUPRAPUBIC CATHETER AT THIS TIME. 1600ML DARK DEMARIO URINE OUTPUT
[2019-04-10 20:03] LABS: BASO % 0.3 % (0.0-1.0); EOS # 0.4 10*3/uL (0.0-0.4); EOS % 3.7 % (1.0-4.0); HEMATOCRIT 40.5 % (42.0-52.0); HEMOGLOBIN 13.9 g/dl (14.0-18.0); LYMPH # 2.4 10*3/uL (1.3-4.4); LYMPH % 25.4 % (27.0-41.0); MEAN CELL VOLUME 89.6 fl (80.0-94.0); MEAN CORPUSCULAR HGB 30.8 pg (27.0-31.0); MEAN CORPUSCULAR HGB CONC 34.3 g/dl (33.0-37.0); MEAN PLATELET VOLUME 8.6 fl (9.6-12.3); MONO # 0.8 10*3/uL (0.1-1.0); NEUT # 5.9 10*3/uL (2.3-7.9); NEUT % 62.2 % (47.0-73.0); PLATELET COUNT AUTOMATED 315 10*3/uL (130-400); RED BLOOD COUNT 4.52 10*6/uL (4.50-5.90); RED CELL DISTRI WIDTH 14.6 % (0-14.5); WHITE BLOOD COUNT 9.5 10*3/uL (4.8-10.8)
[2019-04-10 20:18] LABS: ALBUMIN 2.7 gm/dl (3.1-4.5); ALKALINE PHOSPHATASE 94 U/L (45-117); BUN 12 mg/dl (7-24); CHLORIDE 90 mmol/L (98-107); CREATININE 0.38 mg/dL (0.70-1.30); POTASSIUM 4.1 mmol/L (3.5-5.1); SGOT/AST 14 IU/L (3-35); SGPT/ALT 13 U/L (12-78); SODIUM 123 mmol/L (136-145); TOTAL PROTEIN 6.9 gm/dL (6.4-8.2)
--- NOTE | 2019-04-10 22:00 | NUR ---
A 64, admitted to 5E, under the services of TOMASA Bronson DO with a diagnosis of HYPONATREMIA. Chief complaint is CONCERN OVER S/P CATHETER SITE. Patient arrived via ambulance from ER. Monitor applied. Initial assessment completed. Vital signs taken and recorded. TOMASA BRONSON DO notified of admission to the unit. Orders received. See assessment for past medical history, medications and allergies. Patient and/or family oriented to unit. visitation policy reviewed. Clothing/patient valuable form completed. TOPHER HAY
[2019-04-11] VITALS: BP 108/74
--- NOTE | 2019-04-11 05:46 | NUR ---
DR. BANUELOS'S ANSWERING SERVICE NOTIFIED OF CONSULT FOR HYPONATREMIA.
[2019-04-11 07:11] LABS: BASO % 0.3 % (0.0-1.0); EOS # 0.1 10*3/uL (0.0-0.4); EOS % 1.6 % (1.0-4.0); HEMATOCRIT 41.1 % (42.0-52.0); HEMOGLOBIN 13.6 g/dl (14.0-18.0); LYMPH # 2.4 10*3/uL (1.3-4.4); LYMPH % 27.6 % (27.0-41.0); MEAN CELL VOLUME 90.3 fl (80.0-94.0); MEAN CORPUSCULAR HGB 29.9 pg (27.0-31.0); MEAN CORPUSCULAR HGB CONC 33.1 g/dl (33.0-37.0); MEAN PLATELET VOLUME 8.8 fl (9.6-12.3); MONO # 0.7 10*3/uL (0.1-1.0); MONO % 8.4 % (3.0-9.0); NEUT # 5.3 10*3/uL (2.3-7.9); NEUT % 61.9 % (47.0-73.0); PLATELET COUNT AUTOMATED 305 10*3/uL (130-400); RED BLOOD COUNT 4.55 10*6/uL (4.50-5.90); RED CELL DISTRI WIDTH 14.7 % (0-14.5); WHITE BLOOD COUNT 8.6 10*3/uL (4.8-10.8)
[2019-04-11 07:33] LABS: ALBUMIN 2.8 gm/dl (3.1-4.5); BUN 13 mg/dl (7-24); CHLORIDE 91 mmol/L (98-107); CREATININE 0.45 mg/dL (0.70-1.30); PHOSPHOROUS 3.1 mg/dL (2.5-4.9); POTASSIUM 3.8 mmol/L (3.5-5.1); SGOT/AST 8 IU/L (3-35); SGPT/ALT 13 U/L (12-78); SODIUM 125 mmol/L (136-145); TOTAL PROTEIN 7.1 gm/dL (6.4-8.2)
[2019-04-11 07:34] LABS: ALKALINE PHOSPHATASE 91 U/L (45-117)
--- NOTE | 2019-04-11 07:47 | NUR ---
NETTABROOKS [id number] Please refer to the physician's history and physical for past medical history, comorbid conditions, and allergies. Diagnosis: HYPONATREMIA Ralph Score: 13,MODERATE RISK WOUND DESCRIPTIONS: Entire buttocks is red and blanchable at time of assessment. No open areas noted at time of assessment. No drainage noted at time of assessment. Patient state is unsure how long this has been going on. Surface the patient is resting on: Position Pro SKIN PREVENTION RECOMMENDATION: 1. Pressure redistribution support surface as appropriate 2. Elevate heels 3. Remove boots/TEDS every shift and reapply 4. Head of bed 30 degrees as tolerated 5. Assess nutrition and hydration 6. Manage moisture 7. Avoid the use of containment devices while in bed 8. Use absorptive products on surfaces limit layers of linens on bed 9. Turn and reposition every 1-2 hours in bed and every 1 hour in chair as tolerated 10. Weight shifts every 15 minutes while up in chair 11. Offloading with pillows or device to keep heels elevated off bed 12. Monitor skin at least every shift 13. Inspect under medical devices twice a day WOUND TREATMENT RECOMMENDATIONS: Dressing change: Cleanse left and right buttocks with soap and water pat dry and apply zinc oxide and vitamin A and D ointment BID and as needed for soiling. Wheelchair cushion when oob.
--- NOTE | 2019-04-11 07:53 | NUR ---
Nursing screen and occupational therapy referral received. Thank you. Maddy Merritt OTR/
[2019-04-11 08:00] VITALS: BP 106/68
--- NOTE | 2019-04-11 08:23 | NUR ---
PHYSICAL THERAPY Nursing screen received and chart reviewed. Physical therapy order received. Thank you. Corinne Walker,PT,DPT
--- NOTE | 2019-04-11 08:47 | NUR ---
Dr. Lima notified of wound care recommendations.
--- NOTE | 2019-04-11 10:37 | NUR ---
PHYSICAL THERAPY Physical therapy evaluation complete, 5E. Full evaluation/details to follow. Moderate complexity PT evaluation (70163) per chart review and evaluation. PT to progress bed mobility, transfers, balance, LE ROM per POC. Recommend 24 hour supervision and assist at discharge. Thank you. Corinne Walker,PT,DPT
--- NOTE | 2019-04-11 10:37 | NUR ---
Occupational THerapy evaluation completed on 5 with full eval to follow. Patient reports the was so much more comfortable once his "catheter was changed" at admission. Precautions include fall risk, poor sit balance,BLE contractures, abnormal tone,poor LUE use, high complexity level 99591 via chart review, testing and evaluation. Recommend OT per POC and SNF to enable max ability to function or home w/ 24 hr supervision and assist Thank you. Maddy Merritt OTR/l
[2019-04-11 12:00] VITALS: BP 123/67
--- NOTE | 2019-04-11 15:35 | NUR ---
PLEATER HAND faxed Palliative order to [facility].
[2019-04-11 16:00] VITALS: BP 123/79
--- NOTE | 2019-04-11 16:37 | NUR ---
NORCO GIVEN FOR C/O ABDOMEN PAIN.
--- NOTE | 2019-04-11 17:38 | NUR ---
CÉSAR HELPED MINIMALLY.
[2019-04-11 20:00] VITALS: BP 136/87
--- NOTE | 2019-04-11 20:10 | NUR ---
24 HR chart check completed.
--- NOTE | 2019-04-11 20:30 | NUR ---
RESTING IN BED WITH NO ACUTE DISTRESS NOTED. RESPIRATIONS EASY. LUNGS DIMINISHED, CLEAR. ROOM AIR. SUPRA-PUBIC CATH PATENT, DRAINING DEMARIO URINE WITH SEDIMENT. TUBI-REMOTE COMPUTER TERMINAL OPERATOR PLACED. CALL LIGHT WITHIN REACH. NO VOICED COMPLAINTS. BED ALARM MAINTAINED FOR SAFETY
--- NOTE | 2019-04-11 22:22 | NUR ---
REQUESTED AND RECEIVED NORCO PER PRN ORDER FOR COMPLAINTS OF ALL OVER BODY PAIN AND RESTORIL TO ASSIST WITH SLEEP. CALL LIGHT WITHIN REACH. WILL MONITOR FOR EFFECTIVENESS
[2019-04-12] VITALS: BP 134/87
--- NOTE | 2019-04-12 | NUR ---
MEDS EFFECTIVE. SLEEPING. RESPIRATIONS EASY. VSS. CALL LIGHT WITHIN REACH. BED ALARM MAINTAINED FOR SAFETY
--- NOTE | 2019-04-12 06:00 | NUR ---
SLEPT THROUGHOUT NIGHT WITH NO DISTRESS NOTED. RESPIRATIONS EASY. CALL LIGHT WITHIN REACH. NO VOICED COMPLAINTS THIS SHIFT
[2019-04-12 06:32] LABS: ALBUMIN 2.8 gm/dl (3.1-4.5); CHLORIDE 93 mmol/L (98-107); POTASSIUM 4.3 mmol/L (3.5-5.1); SODIUM 128 mmol/L (136-145)
[2019-04-12 06:35] LABS: BUN 12 mg/dl (7-24); CREATININE 0.28 mg/dL (0.70-1.30); PHOSPHOROUS 3.3 mg/dL (2.5-4.9)
[2019-04-12 08:00] VITALS: BP 128/80
[2019-04-12 12:00] VITALS: BP 129/83
[2019-04-12 16:00] VITALS: BP 139/89
[2019-04-12 20:00] VITALS: BP 140/88; BP 145/95
[2019-04-13] VITALS: BP 132/91
--- NOTE | 2019-04-13 01:00 | NUR ---
PATIENT SLEEPING. NO SIGNS OR SYMPTOMS OF DISTRESS. ORIN LOU
--- NOTE | 2019-04-13 01:10 | NUR ---
24 HR chart check completed.
[2019-04-13 06:51] LABS: BUN 6 mg/dl (7-24); CHLORIDE 92 mmol/L (98-107); CREATININE 0.28 mg/dL (0.70-1.30); PHOSPHOROUS 3.1 mg/dL (2.5-4.9); POTASSIUM 4.5 mmol/L (3.5-5.1); SODIUM 125 mmol/L (136-145)
[2019-04-13 06:54] LABS: ALBUMIN 2.9 gm/dl (3.1-4.5)
[2019-04-13 08:00] VITALS: BP 144/96
[2019-04-13 12:00] VITALS: BP 135/98
--- NOTE | 2019-04-13 14:41 | NUR ---
24 HR chart check completed.
[2019-04-13 16:00] VITALS: BP 140/96
[2019-04-13 20:00] VITALS: BP 134/90
--- NOTE | 2019-04-13 20:00 | NUR ---
IN TO ASSESS PATIENT. PATIENT ALERT AND ORIENTED. FORGETFUL. DIMINSIHED LUNGS T/O. NO COMPLAINTS AT THIS TIME. ON ROOM AIR. DENIES SOB. DENIES CP. PATIENT CONTRACTED IN THE LEGS AND A LITTLE BIT IN THE ARMS. NORMOACTIVE BOWELS X4 QUADS. PATIENT MOVED BOWELS WHILE IN ROOM, PATIENT CHANGED AND BARRIER CREAM APPLIED. SUPRAPUBIC CATHETER PATENT FOR YELLOW URINE. PATIENT AWARE OF FLUIDS RESTRICTION. CALL LIGHT WITHIN REACH, WILL MONITOR
--- NOTE | 2019-04-13 22:30 | NUR ---
PRN TYLENOL GIVEN FOR PT COMPLAINTS OF A MINOR HEADACHE. CALL LIGHT WITHIN REACH, WILL MONITOR
--- NOTE | 2019-04-13 23:05 | NUR ---
PT MEDICATED WITH NORCO FOR C/O GENERALIZED PAIN RATED AN 8/10. WILL MONITOR FOR EFFECTIVENESS.
--- NOTE | 2019-04-13 23:14 | NUR ---
NOTIFIED DR. ALSTON THAT PATIENTS MANUAL BLOOD PRESURE IS 136/102. PATIENT IN PAIN AND PAIN PILL GIVEN. NOTIFIED HIM THAT HIS BLOOD PRESSURE HAS BEEN RUNNING 130'S/90'S. HE STATED WE CAN JUST KEEP AN EYE ON IT
--- NOTE | 2019-04-13 23:30 | NUR ---
TYLENOL EFFECTIVE FOR HEADACHE
--- NOTE | 2019-04-13 23:49 | NUR ---
PATIENT RESTING IN BED. REPOSTIONED WITH WEDGE. REQUESTING TV ON. CALL LIGHT WITHIN REACH, ORIN LOU
[2019-04-14] VITALS: BP 136/102; BP 138/86
[2019-04-14 01:00] VITALS: BP 130/98
--- NOTE | 2019-04-14 01:00 | NUR ---
NORCO SOMEWHAT EFFECTIVE PERPT
--- NOTE | 2019-04-14 01:09 | NUR ---
NOTIFIED DR. ALSTON OF PATIENTS BLOOD PRESSURE OF 130/98. DR. ALSTON STATED HE WOULD LIKE TO CONTINUE TO WATCH THE PATIENTS BLOOD PRESSURE
--- NOTE | 2019-04-14 02:37 | NUR ---
PATIENT SLEEPING. NO DISTRESS NOTED. CALL LIGHT WITHIN REACH
--- NOTE | 2019-04-14 03:11 | NUR ---
24 HR chart check completed.
--- NOTE | 2019-04-14 03:56 | NUR ---
PRN NORCO GIVEN FOR PT COMPLAINTS OF 10/10 PAIN IN HIS JOINTS. OFFERED PATIENT MORPHINE PATIENT WAS SAYING HE WAS IN EXCRUCIATING PAIN. WHEN MORPHINE BROUGHT IN, PATIENT STATED THAT HE WOULD BE FINE WITH THE PAIN PILL. MORPHINE WASTED WITH PATRICIO MEDINA RN. CALL LIGHT WITHIN REACH, WILL MONITOR
--- NOTE | 2019-04-14 04:45 | NUR ---
PRN MEDICATION APPEARS EFFECTIVE, PT SLEEPING
[2019-04-14 06:47] LABS: BASO # 0.1 10*3/uL (0.0-0.1); BASO % 0.7 % (0.0-1.0); EOS # 0.7 10*3/uL (0.0-0.4); EOS % 10.9 % (1.0-4.0); HEMATOCRIT 39.1 % (42.0-52.0); LYMPH # 2.5 10*3/uL (1.3-4.4); LYMPH % 36.8 % (27.0-41.0); MEAN CELL VOLUME 90.3 fl (80.0-94.0); MEAN CORPUSCULAR HGB CONC 33.2 g/dl (33.0-37.0); MEAN PLATELET VOLUME 8.9 fl (9.6-12.3); MONO # 0.6 10*3/uL (0.1-1.0); MONO % 9.1 % (3.0-9.0); NEUT # 2.9 10*3/uL (2.3-7.9); NEUT % 42.2 % (47.0-73.0); PLATELET COUNT AUTOMATED 320 10*3/uL (130-400); RED BLOOD COUNT 4.33 10*6/uL (4.50-5.90); RED CELL DISTRI WIDTH 14.4 % (0-14.5); WHITE BLOOD COUNT 6.8 10*3/uL (4.8-10.8)
[2019-04-14 06:59] LABS: CREATININE 0.27 mg/dL (0.70-1.30)
[2019-04-14 08:00] VITALS: BP 154/104
--- NOTE | 2019-04-14 08:00 | NUR ---
PHYSICAL THERAPY Physical therapy addition of goals to include the following: MaxA sit to stand transfer; MaxA standing balance to improve transfer in/out of bed. Thank you. Corinne Walker,PT,DPT.
--- NOTE | 2019-04-14 08:30 | NUR ---
PHYSICAL THERAPY Patient seen this am 1:1 for therapy visit and was supine in bed upon therapist arrival. Patient identified by name / and was MAX A x 2 for supine to sit EOB transfer. Patient reported increased LE joint stiffness prior to transfer and was curled up in "" position on R side lying. Patient tolerated static EOB sit x 5 minutes SBA prior to demonstrating L side lean secondary to increased fatigue. Patient returned to supine in bed, MAX A x 2 and tolerated PROM to B LE, all planes to increased ROM. Patient reports decreased LE joint stiffness and remained in bed with call light, tray table and bed alarm with pillow between knees to prevent skin breakdown. Will continue per POC as tolerated, total treatment time 16 minutes. Mark Casillas, ACID WASH OPERATOR
--- NOTE | 2019-04-14 08:35 | NUR ---
OT NOTE Pt was seen this A.M. 1:1 for 20 minute OT session. Upon arrival pt was supine in bed. Pt identified by name and and had no complaints at this time other than "I just feel real stiff, like I always do." Pt transferred supine to sit EOB with maxA X 2. While sitting EOB pt was able to maintain F/F- sitting balance for aprox 10 minutes with three LOB occuring, one retrograde and two to the L requiring Jessy to correct. While sitting EOB pt completed UB bathing with Jessy for assist with set up and switching from wash rag to towel. Pt required verbal prompts throughout for techniques to improve/correct upright posture to correct L lateral lean, pt had fair carry over. Pt then transferred back into bed sit to supine with maxA X 2. There he was left with call light in hand, tray table in place, bed rails up, and bed alarm activated for safety. Continue with rec D/C plan to SNF or 24 hour supervision/assist. LEYDI Acevedo/Efrain
--- NOTE | 2019-04-14 09:23 | NUR ---
OCCUPATIONAL THERAPIST PER DIEM left message for return call for patients at both numbers listed. Patient stated he feels that he needs to go to a SNF. However, last admission the patients stated they are into their copay days and unable to afford SNF. Medicaid has not been started. Patient stated the decision was up to his . Will continue to reach out to the . -ANGELICA Carpenter
--- NOTE | 2019-04-14 11:33 | NUR ---
Discharge instructions reviewed with patient/family. Patient receptive and verbalizes understanding. Follow-up care arranged. Written instructions given to patient/family. JUAN LAI
[2019-04-14 12:00] VITALS: BP 138/98
--- NOTE | 2019-04-14 13:12 | NUR ---
AUTOMATION TEST DEVELOPER reached out to the patients again. Patients answered. AUTOMATION TEST DEVELOPER explained needed to confirm discharge plans. AUTOMATION TEST DEVELOPER explained patient could return home with [facility] home health or SNF. AUTOMATION TEST DEVELOPER explained again that they would be into their copay days. Patients stated "The Display Department Manager on the 4th floor has all the information bye," and hung up. AUTOMATION TEST DEVELOPER spoke with the Case Management Discharge Planners who stated they have not spoke with the patient since last admission. AUTOMATION TEST DEVELOPER received call back from spouse after writing this note who stated the patient would be returning home and will be resuming [facility]. She stated she called over to [facility] and has a meeting with them next week. She reported she has a bedside commode and hospital bed for the patient. -ANGELICA Carpenter
[2019-04-14 16:00] VITALS: BP 118/86
[2019-04-14 20:00] VITALS: BP 132/94
--- NOTE | 2019-04-14 23:15 | NUR ---
24 HR chart check completed.
[2019-04-15] VITALS: BP 124/91
--- NOTE | 2019-04-15 04:00 | NUR ---
SLEEPING, RESP. EASY AND REG. NO ACUTE DISTRESS NOTED.
[2019-04-15 07:31] LABS: ALBUMIN 2.8 gm/dl (3.1-4.5); BUN 10 mg/dl (7-24); CHLORIDE 90 mmol/L (98-107); CREATININE 0.41 mg/dL (0.70-1.30); PHOSPHOROUS 2.9 mg/dL (2.5-4.9); POTASSIUM 3.6 mmol/L (3.5-5.1); SODIUM 125 mmol/L (136-145)
[2019-04-15 08:00] VITALS: BP 115/76
--- NOTE | 2019-04-15 09:00 | NUR ---
case management visits with patient, social and human services assistant is working with patient's regarding discharge plans, case management will notify [facility] when patient is medically stable for discharge
--- NOTE | 2019-04-15 10:01 | NUR ---
Dr. Rhoades notified of wound care recommendations.
--- NOTE | 2019-04-15 10:52 | NUR ---
Another Multi-Disciplinary Team meeting was held on 04/15/19, for the purpose of discharge planning. patient is medically not ready for discharge, NA 125, he will return home when stable with [facility] LEA MATHIAS
[2019-04-15 12:00] VITALS: BP 111/78
[2019-04-15 16:00] VITALS: BP 110/75
[2019-04-15 20:00] VITALS: BP 121/73
--- NOTE | 2019-04-15 23:47 | NUR ---
NORCO GIVEN PER ORDER FOR ABD AND NECK PAIN. RATED "6"
[2019-04-16] VITALS: BP 145/86
--- NOTE | 2019-04-16 00:40 | NUR ---
RESTORIL GIVEN EPR ORDER FOR INSOMNIA AND RESTLESSNESS. SEEMAR
--- NOTE | 2019-04-16 01:23 | NUR ---
24 HR chart check completed.
--- NOTE | 2019-04-16 02:00 | NUR ---
PT. SLEEPING. RESTORIL EFFECTIVE FOR INSOMNIA.
--- NOTE | 2019-04-16 04:00 | NUR ---
SLEEPING. RESP EASY AND REG. NO ACUTE DISTRESS NOTED.
--- NOTE | 2019-04-16 06:10 | NUR ---
NORCO GIVEN PER ORDER FOR ABD PAIN RATED "6" SEE MAR.
[2019-04-16 06:44] LABS: ALBUMIN 2.7 gm/dl (3.1-4.5); BUN 11 mg/dl (7-24); CHLORIDE 92 mmol/L (98-107); POTASSIUM 3.4 mmol/L (3.5-5.1); SODIUM 125 mmol/L (136-145)
[2019-04-16 08:00] VITALS: BP 127/86
--- NOTE | 2019-04-16 08:22 | NUR ---
Dr. Rhoades notified of wound care recommendations.
--- NOTE | 2019-04-16 09:39 | NUR ---
PLUSH BRUSHER spoke with the patient. Patient is currently into copay days, however has a secondary insurance. PLUSH BRUSHER spoke with the patient about SNF. Patient stated that a he is unsure where he would like to go, PLUSH BRUSHER explained he was previously at [facility] and that there was a bed open at [facility]. Patient is from [place]. Patient stated he would like [facility] to review his referral to see if secondary insurance would cover copay days. PLUSH BRUSHER faxed over referral to [facility] to review it. -ANGELICA Carpenter
--- NOTE | 2019-04-16 10:00 | NUR ---
PHYSICAL THERAPY Patient seen this am 1:1 for therapy visit and was supine in bed upon therapist arrival. Patient identified by name / and reports no new c/o's at this time. Patient presents with increased B knee flexion contracture and tolerated gentle PROM to improve LE knee extension. Patient performed relaxation breathing technique during PROM and demonstrated increased ROM without c/o. Patient transfers supine to sit EOB with MAX A, tolerating 10 minutes EOB sit, including rocking fwd/bkwd and side to side, CGA x 1. Patient demonstrated increased retrograde posture > 5 minutes static sit and needed MOD A x 1 to correct. Patient returned to supine in bed MAX A x 2 and remained with call light, tray table and bed alarm for safety. Patient would benefit from SNF to improve LE ROM / strength, transfers and overall activity tolerance. Will continue per POC as tolerated, total treatment time 17 minutes. Mark Casillas, MANAGER OPERATIONS
--- NOTE | 2019-04-16 10:19 | NUR ---
OT NOTE Pt was seen this A.M. 1:1 for 20 minute OT session. Upon arrival pt was supine in bed. Pt identified by name and and had complaints of "everyday stiff feeling." Pt transferred supine to sit EOB with maxA X 2. While sitting EOB completed AAROM to BUE with gentle stretch at end point to point of tolerance over all planes of motion for 1 X 10 to increase and restore maximum functional use in self care tasks. Challenged pt's sitting tolerance and pt tolerated aprox 10 minutes this session. After aprox 5 minutes pt began to present with retrograde posture and L lateral lean requiring modA to correct. Pt trasnferred back into bed sit to supine with maxa X 2. There he was left with call light in hand, tray table in place, and bed alarm activated for safety. Continue with rec D/C plan to SNF or 24 hour supervision/assist. LEYDI Acevedo/Efrain
--- NOTE | 2019-04-16 11:37 | NUR ---
ANGELICA received notice from [facility] patient has 26 Copay days left and that secondary insurance should cover. However, [facility] is unable to accept the patient into their facility. TESTING AND REGULATING TECHNICIAN spoke with the patient and his about a referral being sent to [facility]. The patients was stated "NO I will take him home." Patient stated she would like to speak with [facility] to follow at home. TESTING AND REGULATING TECHNICIAN contacted RN Hospitalist Coordintors office, spoke with Jenn, about obtaining a consult. -ANGELICA Carpenter
[2019-04-16 12:00] VITALS: BP 103/78
--- NOTE | 2019-04-16 12:21 | NUR ---
ANGELICA spoke with the patients and provided her resources on [facility] and [facility]. LAWNMOWER MECHANIC contacted [facility] with new referral. They have a liaison in the area that will stop in to talk to the patient and his . LAWNMOWER MECHANIC faxed over document. As the jingle writer was entering this note, [facility] liasion stopped in and is currently meeting with the patient and . -ANGELICA Carpenter
--- NOTE | 2019-04-16 15:19 | NUR ---
OT ANN I APPROVE OF THE NOTES WRITTEN ABOVE. RUTH ASHER, OTR/L
[2019-04-16 16:00] VITALS: BP 116/83
--- NOTE | 2019-04-16 18:48 | NUR ---
PT C/O OF LEG PAIN PRN NORCO GIVEN PER ORDER
[2019-04-16 20:00] VITALS: BP 121/90
--- NOTE | 2019-04-16 20:53 | NUR ---
24 HR chart check completed.
[2019-04-17] VITALS: BP 127/90
--- NOTE | 2019-04-17 02:12 | NUR ---
Patient resting quietly with no c/o discomfort. Respirations easy and regular. Vital signs stable. No overt distress. CAT DOCKERY
[2019-04-17 06:50] LABS: BASO % 0.5 % (0.0-1.0); EOS # 0.8 10*3/uL (0.0-0.4); EOS % 10.5 % (1.0-4.0); HEMATOCRIT 38.3 % (42.0-52.0); HEMOGLOBIN 12.5 g/dl (14.0-18.0); LYMPH # 2.9 10*3/uL (1.3-4.4); LYMPH % 36.1 % (27.0-41.0); MEAN CELL VOLUME 91.4 fl (80.0-94.0); MEAN CORPUSCULAR HGB 29.8 pg (27.0-31.0); MEAN CORPUSCULAR HGB CONC 32.6 g/dl (33.0-37.0); MEAN PLATELET VOLUME 8.8 fl (9.6-12.3); MONO # 1.1 10*3/uL (0.1-1.0); MONO % 13.7 % (3.0-9.0); NEUT # 3.1 10*3/uL (2.3-7.9); NEUT % 38.9 % (47.0-73.0); PLATELET COUNT AUTOMATED 269 10*3/uL (130-400); RED BLOOD COUNT 4.19 10*6/uL (4.50-5.90); RED CELL DISTRI WIDTH 14.9 % (0-14.5)
[2019-04-17 07:04] LABS: BUN 10 mg/dl (7-24); CHLORIDE 92 mmol/L (98-107); CREATININE 0.28 mg/dL (0.70-1.30); POTASSIUM 3.9 mmol/L (3.5-5.1); SODIUM 127 mmol/L (136-145)
[2019-04-17 08:00] VITALS: BP 121/85
--- NOTE | 2019-04-17 08:03 | NUR ---
OT NOTE Pt was seen this A.M. 1:1 for 18 minute OT session. Upon arrival pt was supine in bed. Pt identified by name and and had complaints of "5/10 R hip pain." Pt transferred supine to sit EOB with modA X 2 and educated pt on techniques for increased I in bed mobility. While sitting EOB pt completed ADL task consisting of washing his face and hands which he required Jessy for assist with set up, gathering rag, and maintaining balance throughout. Challenged pt's sitting tolerance for increased endurance and pt was able to tolerate aprox 9 minutes, after 5 minutes pt presented with L lateral lean and was forward flexed requiring min-modA to correct. Pt then transferred back into bed sit to supine with maxA X 2. There he was left with call light in hand, tray table in place, and bed alarm activated for safety. Continue with rec D/C plan to SNF or 24 hour supervision/assist. LEYDI Acevedo/Efrain
--- NOTE | 2019-04-17 08:10 | NUR ---
PHYSICAL THERAPY Patient seen this am 1;1 for therapy visit and was supine in bed upon therapist arrival. Patient identified by name / and reports 5/10 R hip pain. Patient transfers supine to sit EOB with MOD A x 2, demonstrating improved B LE knee extension following relaxation breathing ex. Patient tolerated static EOB sit x 9 minutes, including seated B LE marching, heel raises ex 10 reps each without c/o. Patient returned to supine in bed MAX A x 2 and remained with call light, tray table and bed alarm. Will continue per POC as tolerated, total treatment time 16 minutes. Mark Casillas, SENIOR TECHNICAL SPECIALIST
--- NOTE | 2019-04-17 10:56 | NUR ---
C SOFTWARE ENGINEER received notice that the patient is not eligible for Hospice at this time. When patient is medically stable he will have [facility]. C SOFTWARE ENGINEER to notify the patients family. -ANGELICA Carpenter
[2019-04-17 12:00] VITALS: BP 120/83
[2019-04-17 16:00] VITALS: BP 111/80
[2019-04-17 20:00] VITALS: BP 137/99
--- NOTE | 2019-04-17 20:08 | NUR ---
PATIENT IS RESTING IN BED WITH EASY AND REGULAR RESPERS ON ROOM AIR. ASSESSMENT IS COMPLETE WITH NO S/S OF DISTRESS OR C/O NOTED. BED IS LOW, LOCKED, ALARMED, AND CALL LIGHT IS WITHIN REACH. WILL CONTINUE TO MONITOR, SEE SHIFT ASSESSMENT.
[2019-04-18] VITALS: BP 134/83
--- NOTE | 2019-04-18 02:57 | NUR ---
24 HR chart check completed.
[2019-04-18 08:00] VITALS: BP 139/94
[2019-04-18 08:03] LABS: BUN 9 mg/dl (7-24); CHLORIDE 92 mmol/L (98-107); CREATININE 0.35 mg/dL (0.70-1.30); POTASSIUM 3.8 mmol/L (3.5-5.1); SODIUM 127 mmol/L (136-145)
--- NOTE | 2019-04-18 08:26 | NUR ---
24 HR chart check completed.
--- NOTE | 2019-04-18 10:10 | NUR ---
PATIENT GIVEN TYLENOL AT THIS TIME FOR COMPLAINT OF A HEADACHE 11/29.
--- NOTE | 2019-04-18 10:21 | NUR ---
PATIENT REPOSITIONED AT THIS TIME FOR COMFORT, SUPRAPUBIC CATHETER ASSESSED AND RESECURED AT THIS TIME.
--- NOTE | 2019-04-18 10:40 | NUR ---
PATIENT RESTING COMFORTABLLY, RESPIRATIONS EASY AND NON-LABORED, AROUSABLE AND ALERT.
[2019-04-18] MEDS ORDERED: SODIUM CHLORIDE1 GM PO (12:26)
[2019-04-18] MEDS ORDERED: FUROSEMIDE20 M1 PO (12:26)
--- NOTE | 2019-04-18 13:49 | NUR ---
OT CO-SIGN I APPROVE OF THE NOTES WRITTEN ABOVE. THANK YOU. RUTH ASHER, OTR/L
--- NOTE | 2019-04-18 14:21 | NUR ---
PHYSICAL THERAPY CO-SIGN I approve of the Physical Therapy notes written above. RADHA BAUTISTA PT,DPT
--- NOTE | 2019-04-18 14:59 | NUR ---
case management contacted [facility], spoke to Renetta, informed her that patient is being discharged to home today and also that patient's information is being faxed
--- NOTE | 2019-04-18 15:15 | NUR ---
HARNESSMAKER APPRENTICE contacted [facility], however they are unable to pick the patient up for a fews hours. HARNESSMAKER APPRENTICE contacted [facility] they are able to pick the patient up in 20 mins. HARNESSMAKER APPRENTICE notified RN-Nereyda and contacted patients . -ANGELICA Carpenter
--- NOTE | 2019-04-18 15:35 | NUR ---
SPOKE WITH PATIENT MOR CONCERNING PATIENT DISCHARGE INSTRUCTIONS. EMPHASIZED THAT PATIENT IS TO ONLY HAVE ONE LITER OF FLUID IN A 24 HOUR PERIOD, EXPLAINED THAT HE WAS BEING SENT HOME WITH A PITCHER TO MEASURE HOW MUCH FLUID HE WAS RECEIVING, ALSO EXPLAINED THAT SHE NEEDED TO ADD INTO THAT AMOUNT ANY FOODS THAT WERE/CONTAINED WATER TO THE TOTAL AMOUNT. ALSO EXPLAINED THAT HE HAD TWO NEW MEDICATIONS THAT WOULD BE AT THE PHARMACY AND THAT HE HAD TWO FOLLOW UP APPOINTMENTS THAT WOULD NEED TO BE MADE. ADVISED HER THAT IF SHE HAD ANY QUESTIONS TO CALL BACK TO THE FLOOR BEFORE 1930 HOURS OR CALL THE DOCTORS OFFICE.
--- NOTE | 2019-04-18 16:05 | NUR ---
PATIENT DISCHARGED FROM FLOOR TO HOME AT THIS TIME [facility]IA [facility], BELONGINGS WITH PATIENT, SOCKS, DEODERANT, TOOTHBRUSH, FLOSS STICKS.
--- NOTE | 2019-04-21 07:52 | NUR ---
Received call from Katharnia at [facility]. They have accepted the patient and will start care.
--- NOTE | 2019-04-21 09:22 | NUR ---
OCCUPATIONAL THERAPY CO-SIGN I approve of the Occupational Therapy notes written above. CLIFF PHAM OTR/Efrain
== END 2019-04-18 16:05 | disposition other institution (70) | DRG 698 ==
LOC: ED 18:24 → EDHOLD 21:11 → 5E 21:11
PROVIDERS: Emergency Medicine; Internal Medicine; Student in an Organized Health Care Education/Training Program; ADMIT Internal Medicine
DX: T83.090A Other mechanical complication of cystostomy catheter, initial encounter (principal); E43 Unspecified severe protein-calorie malnutrition; N39.0 Urinary tract infection, site not specified; E87.1 Hypo-osmolality and hyponatremia; T83.510D Infection and inflammatory reaction due to cystostomy catheter, subsequent encounter; L89.152 Pressure ulcer of sacral region, stage 2; R26.2 Difficulty in walking, not elsewhere classified; E61.1 Iron deficiency; B96.20 Unspecified Escherichia coli [E. coli] as the cause of diseases classified elsewhere; E87.8 Other disorders of electrolyte and fluid balance, not elsewhere classified; D64.9 Anemia, unspecified; E55.9 Vitamin D deficiency, unspecified; I10 Essential (primary) hypertension; Z93.3 Colostomy status; Z80.1 Family history of malignant neoplasm of trachea, bronchus and lung; Z93.59 Other cystostomy status; Z68.28 Body mass index [BMI] 28.0-28.9, adult

== ENCOUNTER 2019-05-12 16:18 | Inpatient (IN) | payer MEDICARE, BC ==
[~2019-05-12] VITALS: Ht 172.7 cm; Wt 78.2 kg
[~2019-05-12 16:18] MED LIST changes: +FUROSEMIDE20 M1 PO; +SODIUM CHLORIDE1 GM PO
[2019-05-12 16:23] VITALS: BP 114/80
--- NOTE | 2019-05-12 16:24 | NUR ---
PT REQUESTING TO GO TO SKILLED FACILITY.
[2019-05-12 17:07] LABS: CLARITY SL CLOUDY (CLEAR); COLOR YELLOW (YELLOW)
[2019-05-12 17:10] LABS: BILIRUBIN NEGATIVE (NEGATIVE); GLUCOSE NEGATIVE (NEGATIVE)
[2019-05-12 17:11] LABS: BLOOD 3+ (NEGATIVE); KETONE NEGATIVE (NEGATIVE); LEUKO ESTERASE 3+ (NEGATIVE); NITRITE POSITIVE (NEGATIVE); PH 8.5 (5.0-9.0); UROBILINOGEN 0.2 E.U./dl (0.2-1.0)
[2019-05-12 17:14] LABS: WBC TNTC wbc/hpf (0-5)
[2019-05-12 17:40] VITALS: BP 118/78
[2019-05-12 18:02] LABS: BASO % 0.5 % (0.0-1.0); EOS # 0.3 10*3/uL (0.0-0.4); EOS % 4.3 % (1.0-4.0); HEMATOCRIT 40.1 % (42.0-52.0); HEMOGLOBIN 13.1 g/dl (14.0-18.0); LYMPH # 2.3 10*3/uL (1.3-4.4); LYMPH % 38.2 % (27.0-41.0); MEAN CELL VOLUME 90.7 fl (80.0-94.0); MEAN CORPUSCULAR HGB 29.6 pg (27.0-31.0); MEAN CORPUSCULAR HGB CONC 32.7 g/dl (33.0-37.0); MEAN PLATELET VOLUME 8.9 fl (9.6-12.3); MONO # 0.6 10*3/uL (0.1-1.0); MONO % 9.6 % (3.0-9.0); NEUT # 2.9 10*3/uL (2.3-7.9); NEUT % 47.2 % (47.0-73.0); PLATELET COUNT AUTOMATED 304 10*3/uL (130-400); RED BLOOD COUNT 4.42 10*6/uL (4.50-5.90); RED CELL DISTRI WIDTH 15.2 % (0-14.5); WHITE BLOOD COUNT 6.1 10*3/uL (4.8-10.8)
[2019-05-12 18:16] LABS: ALBUMIN 2.7 gm/dl (3.1-4.5); ALKALINE PHOSPHATASE 103 U/L (45-117); BUN 7 mg/dl (7-24); CHLORIDE 94 mmol/L (98-107); SGOT/AST 17 IU/L (3-35); SGPT/ALT 15 U/L (12-78); SODIUM 129 mmol/L (136-145); TOTAL PROTEIN 6.8 gm/dL (6.4-8.2)
[2019-05-12 18:50] VITALS: BP 118/78
[2019-05-12] MEDS ORDERED: AMINOPHYLLIN200 MG PO (19:18)
[2019-05-12 20:00] VITALS: BP 116/78
[2019-05-12 20:48] VITALS: BP 147/98
--- NOTE | 2019-05-12 20:48 | NUR ---
A 64, admitted to 4E, under the services of TOMASA Bronson DO with a diagnosis of UNABLE TO AMBULATE. Chief complaint is ASTUDILLO PROBLEM. Patient arrived via ambulance from ER. Monitor applied. Initial assessment completed. Vital signs taken and recorded. TOMASA BRONSON DO notified of admission to the unit. Orders received. See assessment for past medical history, medications and allergies. Patient and/or family oriented to unit. visitation policy reviewed. Clothing/patient valuable form completed. TOPHER HAY
--- NOTE | 2019-05-12 22:18 | NUR ---
NOTIFIED DR. ANDREW THAT PATIENT DOES NOT KNOW HIS HOME MEDICATIONS. HE SAID WE COULD CALL HIS PHARMACY [facility] IN THE MORNING TO UPDATE HIS HOME MEDICATIONS.
[2019-05-13] VITALS: BP 114/69
--- NOTE | 2019-05-13 00:10 | NUR ---
PATIENT INSISTING ON PUTTING ASTUDILLO BAG IN HIS BED. TOLD HIM IT NEEDED TO BE BELOW SO IT COULD DRAIN. HE CALLED ME A DUMMY AND SAID I BETTER PUT IT IN THE BED. I TOLD HIM HE DIDN'T NEED TO TALK TO ME LIKE THAT, I AM JUST HERE TO TAKE CARE OF HIM. HE SAID " YEAH, YOU WILL TAKE CARE OF ME" AND THREW HIS ASTUDILLO BAG ON THE FLOOR. PATIENT BEING VERY RUDE TO ALL THE STAFF. I WALKED OUT OF HIS ROOM AND TURNED THE LIGHTS OUT.
--- NOTE | 2019-05-13 04:34 | NUR ---
PATIENT CONTINUALLY PRESSING CALL LIGHT. PATIENT ASKING TO BE REPOSITIONED AND WHEN MOVED HE IS NOT SATISFIED. HE STATED THAT WE WILL TAKE CARE OF HIM WHEN HE NEEDS US OR HE WILL CALL HIS ROADING ENGINEER. EXPLAINED TO PATIENT THAT WE HAVE TRIED TO MOVE HIM IN MULTIPLE DIFFERENT POSITIONS AND PATIENT STILL NOT SATISFIED. PATIENT VERBALLY ABUSIVE TO ALL STAFF ON FLOOR CUSSING AND YELLING AT THEM. SOON A STAFF MEMBER LEAVES THE ROOM, THE PATIENT IS BACK ON THE CALL LIGHT AND SOMETIMES SAYS NOTHING WHEN ASKED IF HE NEEDS ANYTHING.
[2019-05-13 06:35] LABS: BUN 9 mg/dl (7-24); CHLORIDE 95 mmol/L (98-107); CREATININE 0.43 mg/dL (0.70-1.30); POTASSIUM 3.8 mmol/L (3.5-5.1); SODIUM 126 mmol/L (136-145)
[2019-05-13 06:36] LABS: PHOSPHOROUS 2.8 mg/dL (2.5-4.9)
[2019-05-13 08:00] VITALS: BP 122/76; BP 128/78
--- NOTE | 2019-05-13 08:22 | NUR ---
[facility] NOT OPEN TILL 9AM. WILL CALL ONCE THEY ARE OPENED TO VERIFY MEDS.
--- NOTE | 2019-05-13 08:25 | NUR ---
'S OFFICE NOTIFIED OF CONSULT.
--- NOTE | 2019-05-13 08:47 | NUR ---
Initial referral faxed to [facility], waiting on review/acceptance.
--- NOTE | 2019-05-13 09:00 | NUR ---
Anesthesiology Teacher in to talk to patient. Patient states lives at home with . There are no steps in the home. Physician: oscar Pharmacy: [facility] Home health services: [facility] Patient's level of ADLs: MAX ASSIST Patient has working utilities: all working DME: walker Follow-up physician's appointment after d/c: will be made by hospitalist markie director upon discharge Does patient want to access PORTAL?: no Discharge plan discussed with patient, patient lives at home with , he states he wants to go to a short term assisted and would like to go to [facility] planner will make the referral, case management will follow. LEA MATHIAS
[2019-05-13] MEDS ORDERED: Lopressor25 MG PO (10:01)
[2019-05-13] MEDS ORDERED: SODIUM CHLORIDE1 GM PO (10:01)
--- NOTE | 2019-05-13 10:14 | NUR ---
PHYSICAL THERAPY Physical therapy evaluation completed, 4E. Full details/evaluation to follow. High complexity determined after chart review/evaluation, [address]. PT to work on strength, bed mobility, transfers, gait, ROM, safety. Recommending SNF at discharge. Thank you Shannan Dow, PT, DPT
--- NOTE | 2019-05-13 10:14 | NUR ---
Occupational Therapy evaluation completed on 4 with full eval to follow. Precautions include fall risk, bed alarm,contracture risk,suprapubic catheter, max +2/dep transfers and sit to stand,IV UE, high complexity level 98949. REcommend OT per POC to address UE ADLs, sit balance and UE functional use, and SNF to enable max ability to function and return home w/ . Thank you. Maddy Merritt OTR/l
--- NOTE | 2019-05-13 10:29 | NUR ---
In to see patient to discuss discharge planning. Asked patient if he would like to be referred to [facility]. Patient became excited and stated "Yes!, I would love to be able to go to [facility]! Thank you " Notified patient his initial referral was faxed.
[2019-05-13 12:00] VITALS: BP 102/75
--- NOTE | 2019-05-13 13:47 | NUR ---
case management and social media designer were asked to talk with patient and his regarding patient going to a short term longterm, stated that she would not allow patient to go to a short term skilled, social media designer and case management explained to patient's that patient is alert and oriented and is capable of making his own decision, stated she is his POA, again explained to her that the POA can not make decisions for patient until the patient is unable to make theses decisions themselves, them stated that her mom will not allow patient to go to a facility and that and her mom make all decisions for the patient, again educated her that patient is alert and oriented and is capable of making his own decisions he would be the one to decide about his care and where he wanted to go. the had a lot of other concerns regarding the nursing facility and all of her concerns and questions were answered by case management and social media designer. patient again stated he wanted to go to [facility] for short term longterm for rehab
--- NOTE | 2019-05-13 13:50 | NUR ---
OT NOTE Attempted to see pt this P.M. for OT session and upon arrival pt was supine in bed. Pt was willing to participate in therapy, however with any movement pt had complaints of 10/10 pain at his suprapubic catheter site. Pt unable to participate in therapy at this time due to increased pain with movement and yelling out. Pt was left supine in bed with call light in hand, tray table in place, bed alarm activated for safety, and nurse notified of pain. Continue with POC as able. LEYDI Watson/Efrain
--- NOTE | 2019-05-13 14:12 | NUR ---
ANGELICA and Automobile Mechanic Supervisor Mary spoke with the patient and patients . Patients stated that she did not want the patient to go to a SNF and that she is the DPOA-HC. KNITTING INSPECTOR and Automobile Mechanic Supervisor explained unless the patient is deamed incompetent he is able to make his own decison multiple times. Patients then insisted that her mother (patients mother in law) was a decision maker for the patient as well. KNITTING INSPECTOR and Automobile Mechanic Supervisor again expressed at this time the patient is his own decision maker. KNITTING INSPECTOR and Automobile Mechanic Supervisor answered all questions that she asked about the facility the patient was referred to. KNITTING INSPECTOR was then called back to the patients room, presented her cell phone stating her mother was agreeable to the patient being referred to SNF. KNITTING INSPECTOR explained it was the patients decision once again. KNITTING INSPECTOR also presented the patients with the possibilty of the patient going to an acute rehab. [facility] for a more intense therapy. She was not in agreeance, however, Christelle from [facility] was in the building and willing to speak with the family. Christelle is aware the patients was not in agreeance but offered to still speak with the patient and his . -ANGELICA Carpenter
--- NOTE | 2019-05-13 14:21 | NUR ---
PHYSICAL THERAPY PATIENT WAS IN TOO MUCH PAIN IN THE GROIN /CATHETER AREA TO DO THERAPY TODAY. THIS QUICK TECHNICIAN ATTEMPTED TO ASSISTED PATIENT INT OSITTING AT EOB AND PATIENT WAS IN SEVERE PAIN IN CATHETER INSERTION AREA. APARENTLY , ACCORDING TO PATIENT AND PATIENT'S , THE HAD TRIPPED ON THE CATHETER LINE AND PULLED IT CAUSING TREMENDOUS PAIN. NURSING WAS INFORMED OF THE ACCIDENT AND THE PATIENT'S PRESENT PAIN LEVEL. THE NURSE WAS ALREADY AWARE OF THE SITUATION AND SAID SHE WAS GOING TO GIVE THE PATIENT SOME PAIN MEDICATION. HAILY DUKES WAS PATIENT'S NURSE. LATA RAZA PTA
--- NOTE | 2019-05-13 14:36 | NUR ---
NOTIFIED REGARDING 'S REQUEST FOR SUPRA-PUBIC CATHETER TO BE CHANGED.
--- NOTE | 2019-05-13 15:01 | NUR ---
PT GIVEN IV MORPHINE PER PRN ORDER FOR C/O ABD PAIN. UNABLE TO RATE PAIN ON SCALE. WILL MONITOR EFFECTIVENESS.
--- NOTE | 2019-05-13 15:29 | NUR ---
CHINTAN CALLED REGARDING CONSULT.
--- NOTE | 2019-05-13 15:59 | NUR ---
CT PREP INITIATED AT THIS TIME.
[2019-05-13 16:00] VITALS: BP 131/93
--- NOTE | 2019-05-13 17:51 | NUR ---
PT OFF FLOOR FOR SCHEDULED CT.
[2019-05-13 20:00] VITALS: BP 149/65
--- NOTE | 2019-05-13 21:07 | NUR ---
DR. ANDREW NOTIFIED THAT RNS UNABLE TO STRAIGHT CATH PATIENT AND THAT SUPRAPUBIC CATHETER IS CLOGGED AND UNABLE TO BE IRRIGATED. NO NEW ORDERS.
--- NOTE | 2019-05-13 21:24 | NUR ---
NOTIFIED DR. ANDREW THAT PATIENT ONLY HAD 50 CC OF URINE OUT FOR THE SHIFT. NO NEW ORDERS.
--- NOTE | 2019-05-13 22:14 | NUR ---
PATIENT'S SUPRAPUBIC CATHETER CHANGED BY DR. ANDREW. 1400 ML OF DEMARIO, CLOUDY, MALODOROUS URINE DRAINED AFTER INSERTION. PATIENT MEDICATED WITH TYLENOL FOR PAIN AND RESTORIL PER REQUEST FOR SOMETHING TO HELP WITH SLEEP. WILL MONITOR FOR EFFECTIVENESS.
--- NOTE | 2019-05-13 23:00 | NUR ---
PRN TYLENOL AND RESTORIL EFFECTIVE. PATIENT SLEEPING IN BED. RESPIRATIONS EVEN AND UNLABORED. CALL LIGHT WITHIN REACH.
[2019-05-14] VITALS: BP 102/66
--- NOTE | 2019-05-14 02:17 | NUR ---
24 HR chart check completed.
[2019-05-14 05:11] VITALS: BP 103/72
[2019-05-14 06:15] LABS: BUN 16 mg/dl (7-24); CHLORIDE 94 mmol/L (98-107); CREATININE 0.49 mg/dL (0.70-1.30); POTASSIUM 3.5 mmol/L (3.5-5.1); SODIUM 126 mmol/L (136-145)
[2019-05-14 08:00] VITALS: BP 112/79
--- NOTE | 2019-05-14 08:31 | NUR ---
In to see patient to discuss discharge plans. Explained to patient he was referred to [facility], however Christelle from [facility] was in to speak with him and his yesterday. I explained how [facility] specialized in treating people like him and asked if he had considered it. He stated he really wanted to go to try it but asked that we don't tell his yet. Notified Christelle patient is interested to go and for her to start paperwork.
--- NOTE | 2019-05-14 08:32 | NUR ---
Awake and alert. Case mgt /ss in to discuss placement. pt. is agreeable at this time.
--- NOTE | 2019-05-14 09:56 | NUR ---
OT NOTE Attempted to see pt this A.M. for OT session and upon arrival pt was speaking with the doctor. Will check back at a later time/date and continue with POC as able. LEYDI Watson/Efrain
--- NOTE | 2019-05-14 10:00 | NUR ---
PHYSICAL THERAPY Patient was being seen by physician for consult this am and unavailable for therapy at this time. Will continue per POC at a later time as able. Mark Casillas, SEWER INSPECTOR
--- NOTE | 2019-05-14 10:35 | NUR ---
Calling out frequently , "where is my phone, i dropped my tv control, pull my cover up, pull my cover down ".
[2019-05-14 12:00] VITALS: BP 110/67
--- NOTE | 2019-05-14 12:44 | NUR ---
UNDERCUTTER reviewed the patients DPOA-HC on file with this facility. UNDERCUTTER referred the documents to Legal Team Derian Eric to review for validity. Per the current documents the first canvas products sales representative of the patient is Allen Ramos. UNDERCUTTER located [phone] as a possible number. UNDERCUTTER reached out to Allen Rachel and left a message for a return call. -ANGELICA Carpenter
--- NOTE | 2019-05-14 13:00 | NUR ---
Family in to visit.
--- NOTE | 2019-05-14 14:10 | NUR ---
PHYSICAL THERAPY Patient seen this pm 1;1 for therapy visit and was supine in bed with a family friend visiting upon therapist arrival. Patient identified by name / and presnted with increased B LE flexion contractures. Patient tolerated gentle PROM to B LE to promote increased B Knee extension prior to transfering supine to sit EOB with MAX A. Patient tolerated EOB sit > 10 minutes, CGA, while performing several core strength ex, including rocking fwd / bkwd, seated marching and LAQ x 10 reps each. Patient fatigues quickly and returned to supine in bed MAX A. Patient remained in bed with call light, tray table, telephone and bed alarm for safety. Will continue per POC as tolerated, total treatment time 14 minutes. Mark Casillas, DEMAND GENERATION MANAGER
--- NOTE | 2019-05-14 14:22 | NUR ---
OT NOTE Pt was seen this P.M. 1:1 for 23 minute OT session. Upon arrival pt was supine in bed. Pt identified by name and and had no complaints at this time. Pt was eating lunch upon arrival with supervision after set up of tray for assist with opening containers and cutting food. Pt then transferred supine to sit EOB with maxA for assist with BLE and upper body. Challenged pt's static sitting balance while sitting EOB which he was able to maintain F+/G- static sitting balance. Then challenged pt's dynamic sitting balance needed for increased I and enhanced safety. While weight shifting, crossing midline, and reaching over all planes pt was able to maintain F- sitting balance requiring occasional Jessy to correct retro and R lateral lean. Pt tolerated sitting upright on the EOB unsupported for aporx 11 minutes before fatigue set in resulting in retro LOB. Pt then transferred back into bed sit to supine with maxA X 2. There he was left with call light in hand, tray table in place, and bed alarm activated for safety. Continue with rec D/C plan to SNF. LEYDI Watson/Efrain
--- NOTE | 2019-05-14 14:28 | NUR ---
LEARNING DEVELOPER spoke to the patients about the issues with DPOA-HC and the first risk control representative not being her, it being Allen Ramos and that there are signatures that are not properly placed. She stated that there are more recent DPOA-HC at home and she would bring them in. LEARNING DEVELOPER also explained our Legal Team is reviewing the documents currently. Patient understood. LEARNING DEVELOPER and Water Softener Servicer Trina attempted to explain the differences between SNF and Acute Rehab patient stated that she already spoke with HER mother and the patient is supposed to go to [facility]. LEARNING DEVELOPER asked for the spouses Mothers phone number and the spouse refused. The patient stated he would like to go to [facility] and asked for the spouse to listen to what was being said and the spouse refused. -ANGELICA Carpenter
--- NOTE | 2019-05-14 14:56 | NUR ---
In to see patient with MARSHA Carpenter. Patients at bedside. Greeted patient and asked if he remembered our earlier converstation. He said "yes" I want to go to that rehab place but my won't let me, she won't listen, she just argues with everyone. He did turn to her and tell her to just listen to what we have to say about the acute rehab but before he could finish his sentence, she yelled "NO!". "He is going to [facility]!!" I started to tell her that bed at [facility] may not be available since they had to rearrange for a patient in isolation as the facility told me this morning, but before I could finish, the began yelling at me agian " NO! I said he is going to [facility], I've already been there and reserved his bed". I called Nithya from [facility] while in patients room. She stated they were hesitant to take patient back because of his "mean" and angry behavior towards staff and other residents. However there is a bed available and she stated it is her job to fill beds, so she is notifying [facility] of his admission to [facility] and telling them to start the [place] PASSRR. Will have to wait for PASSRR to clear. MARSHA Carpenter, is waiting to hear back from [employer] regarding the legality of the [facility] paperwork.
[2019-05-14 16:00] VITALS: BP 103/75
--- NOTE | 2019-05-14 17:08 | NUR ---
ANGELICA received phone call from Nereyda Cardoza with [facility] ([phone]). She stated she has only been involved with the patient and his for a couple of weeks. She stated that the patient was referred to them due to the being unable to care for the patient. She stated that [facility] will no longer work with the patient because of the wifes combativeness. She stated when she would interview the patient it seemed as if he would only answer questions that would not upset his . She stated she would right questions on a piece of paper and the patient would write a response. Nereyda stated at first the patients would refuse to answer the door for her visits. Nereyda stated that there is a policy that could overwrite the DPOA-HC papers if needed. It would be an appointment of a surrograte if doctors feel the patients best interest are not being met. Nereyda stated she would consult with her supervisior and obtain more information on this for the DIRECTOR LEARNING AND DEVELOPMENT. Nereyda also provided the patients wifes mothers contact information, Christi Riley [phone]. -ANGELICA Carpenter
[2019-05-14 20:00] VITALS: BP 115/75
[2019-05-15] VITALS: BP 113/54
--- NOTE | 2019-05-15 01:15 | NUR ---
PATIENT IS REQUESTING TO KEEP BRIEF ON AT THIS TIME.
--- NOTE | 2019-05-15 03:58 | NUR ---
24 HR chart check completed.
[2019-05-15 08:00] VITALS: BP 113/75
[2019-05-15 08:16] LABS: BUN 16 mg/dl (7-24); CHLORIDE 97 mmol/L (98-107); CREATININE 0.36 mg/dL (0.70-1.30); POTASSIUM 3.6 mmol/L (3.5-5.1); SODIUM 132 mmol/L (136-145)
--- NOTE | 2019-05-15 08:40 | NUR ---
OT NOTE Pt was seen this A.M. 1:1 for 25 minute OT session. Upon arrival pt was supine in bed. Pt identified by name and and had no complaints at this time. Pt transferred supine to sit EOB with maxA X 2. While sitting EOB challenged pt's dynamic sitting balance needed for increased I and enhanced safety. While weight shifting, crossing midline, and reaching over all planes of motion pt was able to maintain F-/F sitting balance throughout. Pt was able to tolerate sitting EOB unsupported for aprox 14 minutes. Pt had occasional LOB forwards and backwards that required modA to correct. Pt then transferred sit to supine with maxA X 2. There he was left with call light in hand, tray table in place, and bed alarm activated for safety. Continue with rec D/C plan to SNF. PRINCE Watson
--- NOTE | 2019-05-15 08:57 | NUR ---
PHYSICAL THERAPY Patient presented to therapy in supine in R side-lying and rolled blanket between knees to prevent friction. Patient with bilateral knee flexion contractures. Patient was identified by name and on wristband. Patient gives informed consent for treatment. Patient performed supine to sitting at EOB transfer with MAX A X 2. Patient performed sitting on EOB for 15 minutes total and required CGA X 1 most of the time , however at one point, required MOD A x 1 TO REMAIN IN SITTING POSITION. Patient performed sitting bilateral LE ther ex 2 x 10 reps each in LAQs, ankle pumps and hip abduction with manual resistance with hip abduction. Patient received manual bilateral hamstring stretch in supine and sitting with overpressure 3 X 30 SECONDS EACH. Patient transferred back to supine in bed with MAX A X 2. Patient was left in supine in bed with head of bed elevated, call light within reach, and bed alarm activated. Patient was left in supine with LEs in extended position. Patient was 1:1 with this CAFE HELPER for 20 minutes total. LATA RAZA CAFE HELPER
[2019-05-15] MEDS ORDERED: CEFEPIME2 GM/100 M IV (09:27)
--- NOTE | 2019-05-15 10:34 | NUR ---
RAIL TRANSPORTATION OPERATOR reached out to the patients DPOA-HC Allen Holmanfrancisca. RAIL TRANSPORTATION OPERATOR explained according to the DPOA-HC documents the patient wishes were that he make decisions. RAIL TRANSPORTATION OPERATOR explained that [facility] and [facility] were options provided to the the patient and . RAIL TRANSPORTATION OPERATOR explained the has been combatative with International Project Engineer, RAIL TRANSPORTATION OPERATOR and Title Curative Specialist. RAIL TRANSPORTATION OPERATOR explained the decision was ultimately his. He understood. He stated that he wanted to review both facilities. RAIL TRANSPORTATION OPERATOR explained the patient has been deamed incomptent. RAIL TRANSPORTATION OPERATOR explained [facility] would be more than willing to reach out and explain the benefits. He was agreeable. RAIL TRANSPORTATION OPERATOR explained the patients stated she had a more current DPOA-HC at home and is set to bring it in. However, as of now he is the patients field representative/health education. He understood. ANGELICA explained we are going to need a decision today, but he could take the time to make the informed decision. ANGELICA will follow back up with the DPOA-HC. -ANGELICA Carpenter
--- NOTE | 2019-05-15 11:42 | NUR ---
ANGELICA reached back out to the [facility]-HC Allen Ramos he stated he would like to meet in the patients room at 2:00pm with ANGELICA. ANGELICA will inform work ticket clerk, RN, and Mechanical Fitter. He is also requesting a copy of the [facility]- papers. -ANGELICA Carpenter
--- NOTE | 2019-05-15 12:27 | NUR ---
ANGELICA and V Belt Mold Assembler And Curer Trina went to speak with the patient. VETERINARIAN SMALL ANIMAL informed the patient that DPOA-HC Allen is coming to talk and visit with him at 2pm today. Patient became visibly emotional and excited. Patient stated he has not seen Allen Ramos in a while. VETERINARIAN SMALL ANIMAL asked the patient if the was present during the conversation and was not allowing the conversation to take place if it would be okay to ask the to step out, the patient was agreeable. DPOA-HC will be in to speak with everyone at 2pm today. -ANGELICA Carpenter
--- NOTE | 2019-05-15 14:11 | NUR ---
Meeting in patients room including Danielle LARSON, Mary Cuellar CM, Corinne Gonzalez CM, patients Kat and patients HPOA Allen. After much discussion and answering questions, [facility] will [facility]. Notified Christelle, will fax additional requested paperwork. Patient should be able to go tomorrow, Sunday05/16/19 if medically stable for discharge. Notified Nithya at [facility] patient no longer needs to hold a bed there.
--- NOTE | 2019-05-15 14:56 | NUR ---
MATHEMATICIAN RESEARCH, Batch Roller Operator Mary and Corinne, and Mines Safety Engineer Trina met with the patients and patients DPOA-HC Allen Ramos. MATHEMATICIAN RESEARCH, Batch Roller Operator, and Discharge planners spoke with and DPOA-HC. All questions were answered informatatively and appropriately. The DPOA-HC spoke with the patients and they were agreeable to have the patient referred to [facility]). After the meeting the patients stopped the MATHEMATICIAN RESEARCH and apologized for her behavior the previous few days. She stated that she would be bringing in the patients clothes to take with him tomorrow to be transported with him. -ANGELICA Carpenter
[2019-05-15 16:00] VITALS: BP 113/80
[2019-05-15 20:00] VITALS: BP 103/83
--- NOTE | 2019-05-15 20:27 | NUR ---
24 HR chart check completed.
--- NOTE | 2019-05-15 21:01 | NUR ---
RESTING IN BED WATCHING TV. RESPIRATIONS EASY. LUNGS DIMINISHED. PULSE OX 96% RA. SUPRA-PUBIC CATH PATENT DRAINING YELLOW WIHT SEDIMENT. MIDLINE PATENT FRANCES. MEDICATED WITH TYLENOL AND RESTORIL PER PRN ORDER FOR COMPLAINTS OF GENERALIZED PAIN RATING A 7 AND TO ASSIST WITH SLEEP. CALL LIGHT WITHIN REACH. BED ALARM MAINTAINED
--- NOTE | 2019-05-15 23:15 | NUR ---
MEDS EFFECTIVE. SLEEPING. RESPIRATIONS EASY. CALL LIGHT WITHIN REACH. BED ALARM MAINTAINED
[2019-05-16] VITALS: BP 107/69
--- NOTE | 2019-05-16 00:30 | NUR ---
CONTINUES TO SLEEP. NO DISTRESS NOTED. RESPIRATIONS EASY. VSS. CALL LIGHT WITHIN REACH. BED ALARM MAINTAINED
--- NOTE | 2019-05-16 06:00 | NUR ---
AWAKE, RESTING IN BED WITH NO ACUTE DISTRESS NOTED. RESPIRATIONS EASY. CALL LIGHT WITHIN REACH
[2019-05-16 07:15] LABS: BASO % 0.6 % (0.0-1.0); EOS # 0.5 10*3/uL (0.0-0.4); EOS % 7.6 % (1.0-4.0); HEMOGLOBIN 11.9 g/dl (14.0-18.0); LYMPH % 31.6 % (27.0-41.0); MEAN CELL VOLUME 90.7 fl (80.0-94.0); MEAN CORPUSCULAR HGB 29.2 pg (27.0-31.0); MEAN CORPUSCULAR HGB CONC 32.2 g/dl (33.0-37.0); MEAN PLATELET VOLUME 9.2 fl (9.6-12.3); MONO # 0.7 10*3/uL (0.1-1.0); MONO % 10.8 % (3.0-9.0); NEUT # 3.1 10*3/uL (2.3-7.9); NEUT % 49.2 % (47.0-73.0); PLATELET COUNT AUTOMATED 256 10*3/uL (130-400); RED BLOOD COUNT 4.08 10*6/uL (4.50-5.90); RED CELL DISTRI WIDTH 15.9 % (0-14.5); WHITE BLOOD COUNT 6.2 10*3/uL (4.8-10.8)
[2019-05-16 08:00] VITALS: BP 112/82
--- NOTE | 2019-05-16 11:23 | NUR ---
Patient is discharged to go to [facility] in [facility]. They asked for set up to be after 2 PM. Scheduled with Ben Matthew at 3PM, [facility] notified.
[2019-05-16 12:00] VITALS: BP 126/82
--- NOTE | 2019-05-16 13:30 | NUR ---
DRESSING TO [employer]ATH[employer] CHANGED. AREA CLEANSED AROUND SITE PER POLICY. NO REDNESS OR DRAINAGE NOTED. TOLERATED WELL. SHEILA MCCOY, SN-OVCT
--- NOTE | 2019-05-16 14:04 | NUR ---
NURSE TO NURSE REPORT GIVEN TO KEL AT [facility].
--- NOTE | 2019-05-16 14:39 | NUR ---
PHYSICAL THERAPY CO-SIGN I approve of the Physical Therapy notes written above. REINA MARTINEZ, PT, DPT
--- NOTE | 2019-05-16 15:12 | NUR ---
[facility] Discharge instructions reviewed with patient/family. Patient receptive and verbalizes understanding. Follow-up care arranged. Written instructions given to patient/family. SASHA HARRIS
--- NOTE | 2019-05-16 15:15 | NUR ---
OCCUPATIONAL THERAPY CO-SIGN I approve of the Occupational Therapy notes written above. CLIFF PHAM OTR/Efrain
--- NOTE | 2019-05-21 14:24 | NUR ---
ANGELICA received phone call from the patients . Patients stated that the patient is excelling at [facility] and she could not be more pleased with the patient going to their facility. Patients stated that the patient has been up and moving since day one and has made a tremendous improvement in mobility. Patients was very thankful of all the help with the Case Management staff at this facility. -ANGELICA Carpenter
== END 2019-05-16 15:12 | DRG 698 ==
LOC: ED 16:18 → 4E 20:30 → EDHOLD 20:30 → 4E 20:34
PROVIDERS: Physician Assistant; Student in an Organized Health Care Education/Training Program; ADMIT Internal Medicine
PROC: 0T2BX0Z Change Drainage Device in Bladder, External Approach (ICD-10-PCS; principal; 2019-05-13)
PROC: 05HY33Z Insertion of Infusion Device into Upper Vein, Percutaneous Approach (ICD-10-PCS; 2019-05-15)
DX: T83.511A Infection and inflammatory reaction due to indwelling urethral catheter, initial encounter (principal); E43 Unspecified severe protein-calorie malnutrition; E87.1 Hypo-osmolality and hyponatremia; I50.32 Chronic diastolic (congestive) heart failure; R26.2 Difficulty in walking, not elsewhere classified; D64.9 Anemia, unspecified; E87.8 Other disorders of electrolyte and fluid balance, not elsewhere classified; K59.00 Constipation, unspecified; R41.9 Unspecified symptoms and signs involving cognitive functions and awareness; N32.89 Other specified disorders of bladder; M81.0 Age-related osteoporosis without current pathological fracture; E66.3 Overweight; I11.0 Hypertensive heart disease with heart failure; E55.9 Vitamin D deficiency, unspecified; B96.5 Pseudomonas (aeruginosa) (mallei) (pseudomallei) as the cause of diseases classified elsewhere; N39.0 Urinary tract infection, site not specified; Y83.8 Other surgical procedures as the cause of abnormal reaction of the patient, or of later complication, without mention of misadventure at the time of the procedure; Y92.89 Other specified places as the place of occurrence of the external cause; Z80.1 Family history of malignant neoplasm of trachea, bronchus and lung; Z87.440 Personal history of urinary (tract) infections; Z68.26 Body mass index [BMI] 26.0-26.9, adult